=== PATIENT | female | born 1960 | race Caucasian/White ===

== ENCOUNTER 2018-04-28 11:39 | Inpatient (IN) ==
[2018-04-28 13:03] LABS: Basophils # (auto) 0.01 K/uL (0-0.2); Basophils % (auto) 0.1 %; Eosinophils # (auto) 0.04 K/uL (0-0.5); Eosinophils % (auto) 0.4 %; Hematocrit (blood only) 32.4 % (37-47); Immature Granulocytes # (auto) 0.03 K/uL (0.00-0.02); Immature Granulocytes % (auto) 0.3 %; Lymphocytes # (auto) 0.58 K/uL (1.2-3.4); Lymphocytes % (auto) 6.5 %; Mean Corpuscular Hgb Conc 30.9 g/dL (32-36); Mean Corpuscular Volume 80.2 fL (80-100); Mean Platelet Volume 8.3 fL (7.4-10.4); Monocytes # (auto) 0.91 K/uL (0.11-0.59); Monocytes % (auto) 10.2 %; Neutrophils # (auto) 7.34 K/uL (1.4-6.5); Neutrophils % (auto) 82.5 %; Platelet Count 524 K/uL (130-400); Red Blood Count 4.04 M/uL (4.2-5.4); White Blood Count 8.91 K/uL (4.8-10.8)
[2018-04-28 13:20] LABS: Alanine Aminotransferase 18 U/L (12-78); Albumin Level 2.3 gm/dl (3.4-5.0); Aspartate Aminotransferase 11 U/L (15-37); BUN Creatinine Ratio 9.8 (10-20); Blood Urea Nitrogen 15 mg/dl (7-18); Calcium 8.8 mg/dl (8.5-10.1); Carbon Dioxide 23 mmol/L (21-32); Chloride 102 mmol/L (98-107); Creatinine Clr Calc Pharmacy 51.4 ml/min; Est GFR (Non-African American) 37.1; Glucose 80 mg/dl (70-99); Potassium 3.9 mmol/L (3.5-5.1); Sodium 134 mmol/L (136-145)
[2018-04-28 13:22] LABS: INR 1.1 (0.9-1.1); Prothrombin Time 11.6 Seconds (9.0-12.0)
[2018-04-28 13:30] LABS: Albumin Globulin Ratio 0.4 (0.9-2); Alkaline Phosphatase 111 U/L (45-117); Bilirubin,Total 0.3 mg/dl (0.2-1); Globulin 5.7 gm/dl (2.5-4.0); Troponin I < 0.015 ng/ml (0-0.045)
--- NOTE | 2018-04-28 14:00 | XRay Report ---
XR knee LT 3V CLINICAL HISTORY: fall trauma. Pain. COMPARISON: None. DISCUSSION: The bones and joint spaces appear intact. There is no evidence of fracture, dislocation o r bony disease. There is no evidence for soft tissue swelling. IMPRESSION: Negative study. The above report was generated using voice recognition software. It may contain grammatical, syntax or spelling errors. Electronically signed by: Manohar Medina M.D. 04/28/2018 1:59 PM
--- NOTE | 2018-04-28 14:02 | XRay Report ---
RIGHT FOOT 3 VIEWS CLINICAL HISTORY: Fall with right foot pain. FINDINGS: 3 views of the right foot are obtained. No prior studies are available for comparison at th e time of dictation. The skeletal structures are osteopenic. No fracture is seen. There are large darcie alexa and plantar calcaneal enthesophytes. Advanced degenerative change as well as postoperative change is seen at the first metatarsophalangeal joint. The joint spaces of the foot are otherwise preserved . The overlying soft tissues are normal as imaged. IMPRESSION: 1. No acute bony abnormality is identified. 2. Osteopenia with heel spurs, postoperative, and degenerative change as above. Electronically signed by: Juaquin Michelle M.D. 04/28/2018 2:01 PM
[2018-04-28] MEDS ORDERED: ACETAMINOPHEN 1,000 MG/100 ML VIAL IV STA (14:51)
[2018-04-28] MEDS ORDERED: MoRPHine SULFATE 4 MG/ML 1 ML CARP\\VIAL IV STA (14:51)
[2018-04-28] MEDS ORDERED: ONDANSETRON INJ 2 MG/ML 2 ML VIAL IV STA (14:54)
--- NOTE | 2018-04-28 14:54 | CT Scan Report ---
CT head/brain wo con CT DOSE: HISTORY: fall, dizzy TECHNIQUE: Multiaxial CT images of the head were performed without the use of intravenous contrast. A dose lowering technique was utilized adhering to the principles of ALARA. Comparison: None. Findings: The paranasal sinuses and mastoid air cells are clear. The calvarium and skull base are int act. The ventricles and sulci are within normal limits. There is no mass, hematoma, midline shift, or acute infarct. Impression: No acute intracranial abnormality. The above report was generated using voice recognition software. It may contain grammatical, syntax or spelling errors. Electronically signed by: Manohar Medina M.D. 04/28/2018 2:50 PM
--- NOTE | 2018-04-28 14:55 | CT Scan Report ---
CT angio chest PE protocol CT DOSE: 3005.64 mGy.cm HISTORY: Trauma. Chest pain. PE dizzy, fall TECHNIQUE: Multiaxial CT images of the chest were performed following the intravenous administration of contrast to evaluate the pulmonary arteries. Maximal intensity projection images were also obtaine d. A dose lowering technique was utilized adhering to the principles of ALARA. COMPARISON STUDY: None. FINDINGS: There is a normal caliber thoracic aorta with no evidence for dissection. There is no evide nce for pulmonary embolus. No pleural effusions. No pneumothorax. The liver and spleen are unremarkab le. No mediastinal or hilar lymphadenopathy. The central airways are patent. The lungs are clear. IMPRESSION: No evidence for pulmonary embolus. The lungs are clear. The above report was generated using voice recognition software. It may contain grammatical, syntax or spelling errors. Electronically signed by: Manohar Medina M.D. 04/28/2018 2:54 PM
--- NOTE | 2018-04-28 15:00 | CT Scan Report ---
CT SCAN OF THE LUMBAR SPINE WITHOUT IV CONTRAST CLINICAL HISTORY: Fall. COMPARISON STUDY: No priors. TECHNIQUE: CT scan of the lumbar spine is performed from the lower thoracic spine to the sacrum. Imag es are reviewed in the axial, sagittal, and coronal planes. IV contrast was not administered specific ally for this examination. There is IV contrast present from the concurrently performed abdominal CT. A dose lowering technique was utilized adhering to the principles of ALARA. FINDINGS: The skeletal structures are osteopenic. There is a mild and acute appearing superior endpla te compression fracture of L1. No retropulsed fragments are identified. Vertebral body height is othe rwise maintained throughout the lumbar spine. The transverse and spinous processes appear intact. Ant erior osteophytes are seen throughout. There is no evidence of spondylolysis. No lytic or blastic les ion is seen. There is advanced disc space narrowing at L1-L2, L4-L5, and L5-S1 with posterior disc os teophyte complexes at these levels. There is no evidence of large disc herniation or high-grade centr al canal stenosis by CT. Mild facet arthropathy is noted in the lower lumbar region. The visualized s acrum and bony pelvis appear intact. The paraspinous soft tissues are normal as imaged. The abdominal aorta is normal in caliber noting moderate atherosclerotic calcification. No retroperitoneal lymphad enopathy is seen. IMPRESSION: 1. There is a mild and acute appearing superior endplate compression fracture of L1. Correlate for po int tenderness at this level. 2. The remainder of the lumbar spine appears intact. 3. Osteopenia and spondylotic change as above. Electronically signed by: Juaquin Michelle M.D. 04/28/2018 2:58 PM
--- NOTE | 2018-04-28 15:09 | CT Scan Report ---
ABDOMEN AND PELVIS CT WITH IV CONTRAST HISTORY: Acute abdominal pain status post fall. Reported history of rectal carcinoma fall, rectal ca ncer reported? TECHNIQUE: Multiaxial CT images of the abdomen and pelvis were performed following the use of intrave nous contrast. A dose lowering technique was utilized adhering to the principles of ALARA. COMPARISON STUDY: CTA chest, CT lumbar and thoracic spine studies of same day. FINDINGS: The imaged lung bases appear generally clear. Respiratory motion however limits evaluation of the aliza g bases. There is no pneumatosis or pneumoperitoneum. The imaged inferior cardiac chambers appear unr emarkable. Coronary arterial calcifications are noted. The gallbladder, liver, spleen, pancreas and adrenal glands appear unremarkable. The kidneys, and ure ters appear unremarkable. Mild to moderate circumferential wall thickening about the urinary bladder. Mildly heterogeneous appearance of the uterus. No adnexal mass lesions. Moderate calcification of th e abdominal aorta without aneurysm. Small sliding-type hilar hernia with mild wall thickening about t he distal esophagus. There is no small bowel obstruction. Terminal ileum is unremarkable. Appendix no t definitively seen. No secondary signs of acute appendicitis. Irregular wall thickening with increased enhancement is noted throughout the anus and anorectal junct ion with mild wall thickening also noted about the distal sigmoid. Irregular mass within this distrib ution is noted with ill-defined margins measuring up to approximately 5.4 x 4.1 x 6.5 cm. There is ce ntral ulceration of the mass with invasion into the right ischioanal fossa partially invading the rig ht gluteus kevin musculature an right pelvic floor musculature. There may also be invasion into the posterior vagina. Extensive deep tissue air along this distribution is also noted. Irregular soft ti ssue nodule measuring 2.1 x 1.4 cm is noted about the right hemipelvis on image 396 series 9 suggesti ve of metastasis. Trace free pelvic fluid with perirectal stranding. Remaining soft tissues appear unremarkable. Multilevel spondylitic spurring and facet arthrosis. No s uspicious lytic or blastic bony lesions identified. Demineralized appearance of the bones.. IMPRESSION: 1. Large irregular invasive potentially ulcerative mass of the anus, anorectal junction and rectum co mpatible with patient's reported known colorectal carcinoma. Mass invades the right ischial anal shankar a and adjacent musculature as above with possible invasion to the posterior vagina. Correlate with pr ior imaging. 2. Right pelvic jorge metastasis. 3. No bowel obstruction, pneumatosis or pneumoperitoneum. 4. Mild to moderate urinary bladder wall thickening. Correlate with urinalysis. 5. No acute posttraumatic abnormality of the abdomen or pelvis identified. Electronically signed by: Adiel Fournier M.D. 04/28/2018 3:07 PM
--- NOTE | 2018-04-28 15:37 | CT Scan Report ---
CT SCAN OF THE THORACIC SPINE WITHOUT IV CONTRAST CLINICAL HISTORY: Fall. Thoracic back pain. COMPARISON STUDY: Chest CT performed the same day 04/28/2018. TECHNIQUE: CT scan of the thoracic spine is performed from the lower cervical spine to the upper lumb ar spine. Images are reviewed in the axial, sagittal, and coronal planes. IV contrast was not adminis tered for this examination. There is IV contrast present from the concurrently performed chest CT. A dose lowering technique was utilized adhering to the principles of ALARA. FINDINGS: The skeletal structures are osteopenic. There is no evidence of acute fracture or malalignm ent involving the thoracic spine. A minimal age indeterminant superior endplate compression deformity is noted involving T4. Vertebral body height is otherwise maintained throughout the thoracic spine. Alignment is preserved. A minimal and acute appearing superior endplate compression deformity is agai n seen involving L1. The transverse and spinous processes appear intact. No lytic or blastic lesion i s seen. Small anterior osteophytes are seen throughout. There is no evidence of large disc herniation or high-grade central canal stenosis by CT. The disc spaces are grossly maintained. No acute posteri or rib fractures identified. There are healed left posterior rib fractures. The paraspinous soft tiss ues are normal as imaged. The visualized lung parenchyma appears clear. See report of dedicated chest CT performed concurrently for detailed intrathoracic findings. IMPRESSION: 1. There is no evidence of acute fracture or malalignment involving the thoracic spine. 2. A minimal and suspected acute superior endplate compression fracture is noted involving L1. 3. A minimal and age indeterminant superior endplate compression deformity of T4 is likely chronic. C orrelate for point tenderness. Dictated: 04/28/2018 3:17 PM Transcribed: 04/28/2018 3:37 PM Kelsey [id number] [facility] Electronically signed by: Juaquin Michelle M.D. 04/28/2018 3:38 PM
--- NOTE | 2018-04-28 15:52 | Emergency Department Note ---
Entered by Merly Vaughan acting as a scribe for History of Present Illness General Chief complaint: Referred by Doctor Stated complaint: PAIN EVERYWHERE,NAUSEA Time Seen by Provider: 04/28/18 12:19 Source: patient History of Present Illness Onset (ago): minute(s) (prior to arrival) Location: back, buttocks and lower extremity (left) Pain Consistency: + other (episode) Maximum Pain Intensity: 10 Quality: + other (referral by doctor) Associated symptoms: + denies other symptoms (abdominal pain, cold symptosm, tingling, right knee pain), + syncope and + other (left knee pain, low back pain, increased rectal pain, dizziness, periorbtial numbness); no fever/chills (fever) The patient is a 58 year old female who presents to the Emergency Room with complaints of an episode of a referral by a doctor occurring prior to arrival. The patient states that 3 years ago she was diagnosed with rectal cancer. She states that she received chemotherapy and radiation in the first year, but n othing since. She reports that they wanted to give her a colostomy, but she didnt want one and they were not straight forward with her about it. She states that she didnt know they would sew her butt shut. She reports that because of this she stopped going to that doctor and hasnt been seen for some time. The patient states that 4 days ago she had an episode of syncope. She reports that she fell in the doorway and hit her left knee. She reports that she then slide down the freezer by the door to her butt. She reports that since the fall she has left knee pain, low back pain, and increased rectal pain. The patient states that today she went to see Dr. Tao for these symptoms. She reports that he sent her here to be worked up. She states that while at his office she vomited. The patient complains of intermittent dizziness and periorbital numbness. The patient denies abdominal pain, fever, cold symptoms, tingling, and right knee pain. Home Medications Home Medications Medication Instructions Recorded Confirmed Type ibuprofen 200 mg PO QID PRN 04/28/18 04/28/18 History Allergies Allergy/AdvReac Type Severity Reaction Status Date / Time No Known Allergies Allergy Unverified 04/28/18 12:26 Past Med/Surg History Medical History Rectal cancer Family History Other Family history non-contributory Social History Preferred Language: Cymraes Communication Ability: Effective Beliefs That Will Affect Care: None marital status: Current Living Situation: Spouse current occupational status: disabled Other Information That Helps Us Care for You: No Feels Safe at Home: Yes Safety Concerns: Feels Safe At This Time Smoking Status: Current some day smoker Hx Alcohol Use: No Hx Substance Use: No Review of Systems See HPI for pertinent positives & negatives. and A total of 10 systems reviewed and were otherwise negative Physical Exam Vital Signs Vital Signs - 24 hr 04/28/18 11:41 04/28/18 11:58 04/28/18 12:00 Temperature 36.8 C Temperature Source Oral Sepsis Recent Fever Within 48 Hours No Sepsis Action Taken by Nursing No Action Required Pulse Rate 136 H Pulse Rate [Carotid] 105 H 103 H Pulse Rate from SpO2 Sensor Pulse Rhythm [Carotid] Regular Pulse Strength [Carotid] Normal Respiratory Rate 18 14 10 L Respiratory Effort / Characteristics Non-Labored Spontaneous Non-Labored Spontaneous Respiratory Depth Normal Normal Respiratory Pattern Regular Regular Blood Pressure 123/87 Blood Pressure [Left Arm] 135/73 134/73 Blood Pressure Mean 99 Blood Pressure Mean [Left Arm] 93 93 Blood Pressure Position Sitting Pulse Oximetry 98 98 97 Oxygen Delivery Method Room Air Room Air 04/28/18 12:31 04/28/18 13:00 04/28/18 13:30 Temperature Temperature Source Sepsis Recent Fever Within 48 Hours Sepsis Action Taken by Nursing Pulse Rate 105 H 97 H 98 H Pulse Rate [Carotid] Pulse Rate from SpO2 Sensor 104 H 98 H 98 H Pulse Rhythm [Carotid] Pulse Strength [Carotid] Respiratory Rate 16 22 20 Respiratory Effort / Characteristics Respiratory Depth Respiratory Pattern Blood Pressure 166/73 H 127/72 145/80 H Blood Pressure [Left Arm] Blood Pressure Mean 104 90 101 Blood Pressure Mean [Left Arm] Blood Pressure Position Pulse Oximetry 99 94 96 Oxygen Delivery Method Room Air Room Air Room Air 04/28/18 14:00 04/28/18 14:01 04/28/18 14:47 Temperature Temperature Source Sepsis Recent Fever Within 48 Hours Sepsis Action Taken by Nursing Pulse Rate 93 H 92 H 87 Pulse Rate [Carotid] Pulse Rate from SpO2 Sensor 93 H 93 H 87 Pulse Rhythm [Carotid] Pulse Strength [Carotid] Respiratory Rate 18 18 16 Respiratory Effort / Characteristics Respiratory Depth Respiratory Pattern Blood Pressure 150/84 H Blood Pressure [Left Arm] Blood Pressure Mean 106 Blood Pressure Mean [Left Arm] Blood Pressure Position Pulse Oximetry 97 97 100 Oxygen Delivery Method Room Air 04/28/18 15:00 04/28/18 16:07 04/28/18 16:30 Temperature Temperature Source Sepsis Recent Fever Within 48 Hours Sepsis Action Taken by Nursing Pulse Rate 85 77 Pulse Rate [Carotid] Pulse Rate from SpO2 Sensor 86 77 Pulse Rhythm [Carotid] Pulse Strength [Carotid] Respiratory Rate 22 18 Respiratory Effort / Characteristics Respiratory Depth Respiratory Pattern Blood Pressure 159/81 H 163/87 H Blood Pressure [Left Arm] Blood Pressure Mean 107 112 Blood Pressure Mean [Left Arm] Blood Pressure Position Pulse Oximetry 100 98 Oxygen Delivery Method Room Air Room Air 04/28/18 17:00 04/28/18 17:30 04/28/18 18:00 Temperature Temperature Source Sepsis Recent Fever Within 48 Hours Sepsis Action Taken by Nursing Pulse Rate 85 78 81 Pulse Rate [Carotid] Pulse Rate from SpO2 Sensor 86 76 80 Pulse Rhythm [Carotid] Pulse Strength [Carotid] Respiratory Rate 18 19 18 Respiratory Effort / Characteristics Respiratory Depth Respiratory Pattern Blood Pressure 161/90 H 148/85 H 149/84 H Blood Pressure [Left Arm] Blood Pressure Mean 113 106 105 Blood Pressure Mean [Left Arm] Blood Pressure Position Pulse Oximetry 96 96 95 Oxygen Delivery Method Room Air Room Air Room Air 04/28/18 18:30 Temperature Temperature Source Sepsis Recent Fever Within 48 Hours Sepsis Action Taken by Nursing Pulse Rate 80 Pulse Rate [Carotid] Pulse Rate from SpO2 Sensor 80 Pulse Rhythm [Carotid] Pulse Strength [Carotid] Respiratory Rate 16 Respiratory Effort / Characteristics Respiratory Depth Respiratory Pattern Blood Pressure 147/80 H Blood Pressure [Left Arm] Blood Pressure Mean 102 Blood Pressure Mean [Left Arm] Blood Pressure Position Pulse Oximetry 97 Oxygen Delivery Method Room Air GENERAL: Awake, alert, intermittently tearful, in no distress HENT: Normocephalic, atraumatic. EYES: Normal conjunctiva. Sclera non-icteric. PERRL. NECK: Supple. No nuchal rigidity. RESPIRATORY: Clear to auscultation. No wheezes. Normal respiratory effort. CARDIAC: Normal rate. Normal rhythm. Extremities warm and well perfused. GI: Soft, non-distended. No tenderness to palpation. No rebound or guarding. No masses. RECTAL: Deferred. MUSCULOSKELETAL: Atraumatic. Chest examination reveals no tenderness. There is no CVA tenderness to palpation. Diffuse tenderness to the lower back. LOWER EXTREMITIES: Calves are equal size bilaterally and non-tender. No edema. Contusion on the left knee. Some tenderness to the left knee and some tenderness over the right foot. NEURO: Normal sensorium. No sensory or motor deficits noted. No facial droop. SKIN: Warm and dry. No jaundice noted. Course 1221: Past medical records reviewed. The patient was evaluated in room C12B, and a complete history and physical examination were performed. 1238: I spoke to Dr. Tao- Oncology. He recommends a broad workup and admission. 1459: I reevaluated the patient and she is having pain after shifting for CT. She is getting pain medicine at this time. I updated her on her lab results at this time. 1543: I reevaluated the patient and updated her on her test results. I discussed the treatment plan with her. She verbally agrees and understands. 1546: I reviewed the patient's case with Dr. Afshan ROMERO Hospitalist. She will evaluate the patient for further management. Consultations Consultation #1: I spoke to Dr. Tao- Oncology. He recommends a broad workup and admission. Time: 12:38 Consultation #2: I reviewed the patient's case with Dr. Afshan ROMERO Hospitalist. She will evaluate the patient for further management. Time: 15:46 Administered Medications Discontinued Medications Acetaminophen (Ofirmev) 1,000 mg in 100 mls @ 400 mls/hr IV NOW STA Stop: 04/28/18 15:05 Last Infusion: 04/28/18 15:12 Dose: 0 mls/hr Documented by: [id number] Admin: 04/28/18 14:57 Dose: 400 mls/hr Documented by: [id number] Morphine Sulfate (Morphine Sulfate) 4 mg IV NOW STA Stop: 04/28/18 14:52 Last Admin: 04/28/18 14:57 Dose: 4 mg Documented by: [id number] Ondansetron HCl (Zofran) 4 mg IV NOW STA Stop: 04/28/18 14:55 Last Admin: 04/28/18 14:57 Dose: 4 mg Documented by: [id number] Medical Decision Making Differential Diagnosis Differential diagnosis: Etiologies such as vasovagal event, infection, anemia, hypoglycemia, hypovolemia, electrolyte abnormalities, dysrhythmias, cardiac ischemia, cardiac tamponade, valvular heart disease, structural heart disease, seizure, vascular stenosis/dissection, pulmonary embolism, intracerebral event, toxicological process, neurologic event, fracture, cervical/vertebral injury, dislocation, intra-abdominal process, pneumothorax, intrathoracic trauma, intracranial injury, soft tissue injury, neurologic process, as well as other traumatic pathologies were entertained. Medical Records Attestation: I reviewed the patient's medical records. Home Medications Current Medication List: was personally reviewed by me Laboratory Data Attestation: I reviewed the patient's lab results. Result diagrams: 04/28/18 12:50 04/28/18 12:50 Lab Results 04/28/18 04/28/18 04/28/18 Range/Units 12:50 12:50 12:50 WBC 8.91 (4.8-10.8) K/uL RBC 4.04 L (4.2-5.4) M/uL Hgb 10.0 L (12.0-16.0) g/dL Hct 32.4 L (37-47) % MCV 80.2 (80-100) fL MCH 24.8 L (25-34) pg MCHC 30.9 L (32-36) g/dL RDW Std Deviation 47.0 H (36.4-46.3) fL RDW Coeff of Carly 16.0 H (11.5-14.5) % Plt Count 524 H (130-400) K/uL MPV 8.3 (7.4-10.4) fL Immature Gran % (Auto) 0.3 % Neut % (Auto) 82.5 % Lymph % (Auto) 6.5 % Rawlins % (Auto) 10.2 % Eos % (Auto) 0.4 % Baso % (Auto) 0.1 % Immature Gran # (Auto) 0.03 H (0.00-0.02) K/uL Neut # (Auto) 7.34 H (1.4-6.5) K/uL Lymph # (Auto) 0.58 L (1.2-3.4) K/uL Rawlins # (Auto) 0.91 H (0.11-0.59) K/uL Eos # (Auto) 0.04 (0-0.5) K/uL Baso # (Auto) 0.01 (0-0.2) K/uL PT 11.6 (9.0-12.0) Seconds INR 1.1 (0.9-1.1) Sodium 134 L (136-145) mmol/L Potassium 3.9 (3.5-5.1) mmol/L Chloride 102 (98-107) mmol/L Carbon Dioxide 23 (21-32) mmol/L Anion Gap 9.0 (3-11) BUN 15 (7-18) mg/dl Creatinine 1.53 H (0.6-1.2) mg/dl Est Cr Clr Drug Dosing 51.4 ml/min Est GFR ( Amer) 43.0 Est GFR (Non-Af Amer) 37.1 BUN/Creatinine Ratio 9.8 L (10-20) Glucose 80 (70-99) mg/dl Calcium 8.8 (8.5-10.1) mg/dl Total Bilirubin 0.3 (0.2-1) mg/dl AST 11 L (15-37) U/L ALT 18 (12-78) U/L Alkaline Phosphatase 111 (45-117) U/L Troponin I < 0.015 (0-0.045) ng/ml Total Protein 8.0 (6.4-8.2) gm/dl Albumin 2.3 L (3.4-5.0) gm/dl Globulin 5.7 H (2.5-4.0) gm/dl Albumin/Globulin Ratio 0.4 L (0.9-2) TSH 3.750 (0.300-4.500) uIu/ml Imaging Data Radiologist's Impression: Radiology results as stated below per my review and the radiologist's interpretation: XR knee LT 3V CLINICAL HISTORY: fall trauma. Pain. COMPARISON: None. DISCUSSION: The bones and joint spaces appear intact. There is no evidence of fracture, dislocation or bony disease. There is no evidence for soft tissue swelling. IMPRESSION: Negative study. The above report was generated using voice recognition software. It may contain grammatical, syntax or spelling errors. Electronically signed by: Manohar Medina M.D. 04/28/2018 1:59 PM RIGHT FOOT 3 VIEWS CLINICAL HISTORY: Fall with right foot pain. FINDINGS: 3 views of the right foot are obtained. No prior studies are available for comparison at the time of dictation. The skeletal structures are osteopenic. No fracture is seen. There are large dorsal and plantar calcaneal enthesophytes. Advanced degenerative change as well as postoperative change is seen at the first metatarsophalangeal joint. The joint spaces of the foot are otherwise preserved. The overlying soft tissues are normal as imaged. IMPRESSION: 1. No acute bony abnormality is identified. 2. Osteopenia with heel spurs, postoperative, and degenerative change as above. Electronically signed by: Juaquin Michelle M.D. 04/28/2018 2:[address] head/brain wo con CT DOSE: HISTORY: fall, dizzy TECHNIQUE: Multiaxial CT images of the head were performed without the use of intravenous contrast. A dose lowering technique was utilized adhering to the principles of ALARA. Comparison: None. Findings: The paranasal sinuses and mastoid air cells are clear. The calvarium and skull base are intact. The ventricles and sulci are within normal limits. There is no mass, hematoma, midline shift, or acute infarct. Impression: No acute intracranial abnormality. The above report was generated using voice recognition software. It may contain grammatical, syntax or spelling errors. Electronically signed by: Manohar Medina M.D. 04/28/2018 2:[address] angio chest PE protocol CT DOSE: 3005.64 mGy.cm HISTORY: Trauma. Chest pain. PE dizzy, fall TECHNIQUE: Multiaxial CT images of the chest were performed following the intrav enous administration of contrast to evaluate the pulmonary arteries. Maximal intensity projection images were also obtained. A dose lowering technique was utilized adhering to the principles of ALARA. COMPARISON STUDY: None. FINDINGS: There is a normal caliber thoracic aorta with no evidence for dissection. There is no evidence for pulmonary embolus. No pleural effusions. No pneumothorax. The liver and spleen are unremarkable. No mediastinal or hilar lymphadenopathy. The central airways are patent. The lungs are clear. IMPRESSION: No evidence for pulmonary embolus. The lungs are clear. The above report was generated using voice recognition software. It may contain grammatical, syntax or spelling errors. Electronically signed by: Manohar Medina M.D. 04/28/2018 2:54 PM A[address]OMEN AND PELVIS CT WITH IV CONTRAST HISTORY: Acute abdominal pain status post fall. Reported history of rectal carcinoma fall, rectal cancer reported? TECHNIQUE: Multiaxial CT images of the abdomen and pelvis were performed following the use of intravenous contrast. A dose lowering technique was utilized adhering to the principles of ALARA. COMPARISON STUDY: CTA chest, CT lumbar and thoracic spine studies of same day. FINDINGS: The imaged lung bases appear generally clear. Respiratory motion however limits evaluation of the lung bases. There is no pneumatosis or pneumoperitoneum. The imaged inferior cardiac chambers appear unremarkable. Coronary arterial calcifications are noted. The gallbladder, liver, spleen, pancreas and adrenal glands appear unremarkable. The kidneys, and ureters appear unremarkable. Mild to moderate circumferential wall thickening about the urinary bladder. Mildly heterogeneous appearance of the uterus. No adnexal mass lesions. Moderate calcification of the abdominal aorta without aneurysm. Small sliding-type hilar hernia with mild wall thickening about the distal esophagus. There is no small bowel obstruction. Terminal ileum is unremarkable. Appendix not definitively seen. No secondary signs of acute appendicitis. Irregular wall thickening with increased enhancement is noted throughout the anus and anorectal junction with mild wall thickening also noted about the distal sigmoid. Irregular mass within this distribution is noted with ill- defined margins measuring up to approximately 5.4 x 4.1 x 6.5 cm. There is central ulceration of the mass with invasion into the right ischioanal fossa partially invading the right gluteus kevin musculature an right pelvic floor musculature. There may also be invasion into the posterior vagina. Extensive deep tissue air along this distribution is also noted. Irregular soft tissue nodule measuring 2.1 x 1.4 cm is noted about the right hemipelvis on image 396 series 9 suggestive of metastasis. Trace free pelvic fluid with perirectal stranding. Remaining soft tissues appear unremarkable. Multilevel spondylitic spurring and facet arthrosis. No suspicious lytic or blastic bony lesions identified. Demineralized appearance of the bones.. IMPRESSION: 1. Large irregular invasive potentially ulcerative mass of the anus, anorectal junction and rectum compatible with patient's reported known colorectal carcinoma. Mass invades the right ischial anal fossa and adjacent musculature as above with possible invasion to the posterior vagina. Correlate with prior imaging. 2. Right pelvic jorge metastasis. 3. No bowel obstruction, pneumatosis or pneumoperitoneum. 4. Mild to moderate urinary bladder wall thickening. Correlate with urinalysis. 5. No acute posttraumatic abnormality of the abdomen or pelvis identified. Electronically signed by: Adiel Fournier M.D. 04/28/2018 3:[address] SCAN OF THE THORACIC SPINE WITHOUT IV CONTRAST CLINICAL HISTORY: Fall. Thoracic back pain. COMPARISON STUDY: Chest CT performed the same day 04/28/2018. TECHNIQUE: CT scan of the thoracic spine is performed from the lower cervical spine to the upper lumbar spine. Images are reviewed in the axial, sagittal, and coronal planes. IV contrast was not administered for this examination. There is IV contrast present from the concurrently performed chest CT. A dose lowering technique was utilized adhering to the principles of ALARA. FINDINGS: The skeletal structures are osteopenic. There is no evidence of acute fracture or malalignment involving the thoracic spine. A minimal age indeterminant superior endplate compression deformity is noted involving T4. Vertebral body height is otherwise maintained throughout the thoracic spine. Alignment is preserved. A minimal and acute appearing superior endplate compression deformity is again seen involving L1. The transverse and spinous processes appear intact. No lytic or blastic lesion is seen. Small anterior osteophytes are seen throughout. There is no evidence of large disc herniation or high-grade central canal stenosis by CT. The disc spaces are grossly maintained. No acute posterior rib fractures identified. There are healed left posterior rib fractures. The paraspinous soft tissues are normal as imaged. The visualized lung parenchyma appears clear. See report of dedicated chest CT performed concurrently for detailed intrathoracic findings. IMPRESSION: 1. There is no evidence of acute fracture or malalignment involving the thoracic spine. 2. A minimal and suspected acute superior endplate compression fracture is noted involving L1. 3. A minimal and age indeterminant superior endplate compression deformity of T4 is likely chronic. Correlate for point tenderness. Dictated: 04/28/2018 3:17 PM Transcribed: 04/28/2018 3:37 PM Kelsey [id number] [facility] Electronically signed by: Juaquin Michelle M.D. 04/28/2018 3:[address] SCAN OF THE LUMBAR SPINE WITHOUT IV CONTRAST CLINICAL HISTORY: Fall. COMPARISON STUDY: No priors. TECHNIQUE: CT scan of the lumbar spine is performed from the lower thoracic spine to the sacrum. Images are reviewed in the axial, sagittal, and coronal planes. IV contrast was not administered specifically for this examination. There is IV contrast present from the concurrently performed abdominal CT. A dose lowering technique was utilized adhering to the principles of ALARA. FINDINGS: The skeletal structures are osteopenic. There is a mild and acute appearing superior endplate compression fracture of L1. No retropulsed fragments are identified. Vertebral body height is otherwise maintained throughout the lumbar spine. The transverse and spinous processes appear intact. Anterior osteophytes are seen throughout. There is no evidence of spondylolysis. No lytic or blastic lesion is seen. There is advanced disc space narrowing at L1-L2, L4- L5, and L5-S1 with posterior disc osteophyte complexes at these levels. There is no evidence of large disc herniation or high-grade central canal stenosis by CT. Mild facet arthropathy is noted in the lower lumbar region. The visualized sacrum and bony pelvis appear intact. The paraspinous soft tissues are normal as imaged. The abdominal aorta is normal in caliber noting moderate atherosclerotic calcification. No retroperitoneal lymphadenopathy is seen. IMPRESSION: 1. There is a mild and acute appearing superior endplate compression fracture of L1. Correlate for point tenderness at this level. 2. The remainder of the lumbar spine appears intact. 3. Osteopenia and spondylotic change as above. Electronically signed by: Juaquin Michelle M.D. 04/28/2018 2:58 PM ECG Data Attestation: I personally reviewed and interpreted this ECG as follows: Indication: back/shoulder pain Rate (beats per minute): 98 Rhythm: normal sinus Findings: + other (normal intervals, normal axis) and + nonspecific-ST abn; no PVC and no ST elevation Blood Pressure Blood Pressure Findings: Elevated blood pressure Blood Pressure Disposition: further management by hospitalist GABRIEL Narrative 58-year-old female history of reported rectal cancer in 2016. With chemo and radiation possibly with some minor surgical revision lost to follow-up presented to oncology today for establishing care here. Prior therapy at [facility]. States intermittently she is been getting somewhat dizzy at times and a little bit of perioral numbness. Fell on . Complaint of left knee and right foot pain along with back pain. Oncology recommended she come here she was in severe pain. Discussed with oncology. Broad CT imaging was completed including the head and thorax. Imaging left knee and foot completed. No acute focal deficits for CVA. EKG and basic labs completed. No significant leukocytosis and anemia of 10. Kidney function creatinine of 1.53 no previous baseline available to me here. No evidence of cardiac injury or thyroid dysfunction. No evidence of acute hepatitis. Offered pain medicine but she initially declined here. X-rays of the knees and foot without acute fracture but degenerative/osteopenic changes. On returning from CT scan patient did request pain medicine given morphine and Tylenol. CT imaging shows no evidence of acute pathology of the chest or head. There is a mild acute appearing L1 compression fracture notable. CT scan of the abdomen pelvis does show rectal/anal mass with invasion into the right ischial anal fossa musculature. There are right pelvic nodule metastasis noted as well. No pneumoperitoneum or bowel obstruction is noted. Urinalysis still pending at this time. Given her pain complaints and difficulty with follow-up in the past believe admission for further oncological workup and symptom treatment is indicated. Discussed with the hospitalist for admission and the patient. Impression & Plan Compression fracture of L1 vertebra, Mass of anus Discharge Plan Visit Data Chief Complaint: Referred by Doctor Stated Complaint: PAIN EVERYWHERE,NAUSEA ED Provider: Jamin Killian Discharge Problem: Compression fracture of L1 vertebra, Mass of anus Patient Disposition: Being Evaluated by Hospitalist Discharge Instructions Interventions: ED Discharge Assessment Last Done: 04/28/18 18:41 Forms Stand Alone Forms: My [facility] Prescriptions Prescriptions: No Action ibuprofen 200 mg Capsule 200 mg PO QID PRN (Reason: Pain) RF: 0 Referrals Referrals: PCP,NO [Primary Care Provider] - Discharge Problem: Compression fracture of L1 vertebra Qualifiers: Encounter type: initial encounter Fracture type: closed Qualified Code(s): S32.010A - Wedge compression fracture of first lumbar vertebra, initial encounter for closed fracture The scribe's documentation has been prepared under my direction and personally reviewed by me in its entirety. I confirm that the note above accurately reflects all work, treatment, procedures, and medical decision making performed by me.
--- NOTE | 2018-04-28 17:24 | History & Physical Report ---
Date of Service April 28, 2018 Assessment & Plan (1) Compression fracture of L1 vertebra: This pt is a 58 yo female with a h/o rectal CA not in remission, whitecoat HTN, , and chronic right ankle pain who presents from the Oncology office with severe lower back pain after a fall on 04/24/18. She reports her legs gave out and often her right ankle will give way due to a chronic injury as she was walking to the bathroom. Her witnessed her fall. She landed on her bottom and had no LOC. She had a lot of pain after that in her left knee and lower back at the waistline that was nonradiating. She denied any numbness or tingling. She denies weakness in her legs and is able to walk, but the standing and sitting positions make the pain much worse. Lying flat makes the pain better. Taking ibuprofen and her 's tramadol have taken the edge off. She had an appt for the first time with Oncology today and had to be brought in by wheelchair to the appt and had such severe pain that she was sent to the ER. She was given morphine 4mg IV x 1 and Zofran, as well as IV APAP and had relief. As for her anorectal CA, she reports initially being treated with XRT and chemo in 2016, and then was told she had to have a colostomy and was fearful of doing this as things weren't explained to her very well. She then went for a second opinion and was told she couldn't have surgery due to not having insurance. She then states she tried to get an appt at [facility] who would not see her. Also, [facility] in [facility] would not see her as she had previously had XRT. She then was lost to follow up until today's appt with Oncology. She reports daily anal leakage mostly of clear fluid and sometimes of stool, no bleeding. -Admit to medical/surgical floor for pain control for L1 compression fracture. Fracture is secondary to fall but likely osteoporotic fracture given osteopenia noted on imaging with fall from standing height. -Continue IV morphine as needed and tramadol p.o. as needed, Zofran as needed for nausea she gets at times with opioids -Would avoid NSAIDs given renal failure and microcytic anemia likely chronic occult GI blood loss due to rectal cancer -Consult orthopedic surgery to see if vertebroplasty would be an option -PT/OT consult placed (2) Rectal cancer: With large infiltrating anorectal mass-without adequate surgical treatment at the time of diagnosis in 2016 due to what seems like social factors. Was to see hematology/oncology Dr. Bee here in the office today but appointment canceled due to severe pain -Consult oncology at this time -Anemia likely secondary to rectal cancer -Continue pain control (3) HTN (hypertension), benign: Patient states that she has whitecoat hypertension and her daughter is a nurse who confirms this at the bedside. Blood pressures here are moderately elevated. Continue to follow -We will not start standing medications at this time (4) Knee pain, acute: Left knee pain secondary to fall 3 days prior to admission. X-ray negative for fracture but does have small effusion on exam -Pain control as above -PT/OT consults (5) Anemia: Anemia is microcytic and hemoglobin is at 10.0. Likely secondary to occult GI bleeding from known rectal cancer -Check iron studies in the morning -Follow CBC (6) DAVID (acute kidney injury): Unclear if this is acute or chronic. Creatinine here is 1.53 and no old labs to compare to. She has not follow-up with primary care physician in 10 years -Follow renal function in the morning -Avoid nephrotoxins -Renally dose all medications (7) Chronic pain of right ankle: Secondary to a fracture in childhood-sounds like CRPS. Has severe pain with minimal palpation of the ankle for decades. Pain control as above -Consider gabapentin (8) DVT prophylaxis: High risk for DVT given ongoing malignancy and relative immobility due to lumbar spine compression fracture Start heparin SQ and watch for rectal bleeding Disposition-admit to medical/surgical floor Expect at least a 2 midnight stay for pain control and further evaluation of her progressive rectal cancer History of Present Illness Chief Complaint: Back pain Primary Care Provider: NO PCP This pt is a 58 yo female with a h/o rectal CA not in remission, whitecoat HTN, , and chronic right ankle pain who presents from the Oncology office with severe lower back pain after a fall on 04/24/18. She reports her legs gave out and often her right ankle will give way due to a chronic injury as she was walking to the bathroom. Her witnessed her fall. She landed on her bottom and had no LOC. She had a lot of pain after that in her left knee and lower back at the waistline that was nonradiating. She denied any numbness or tingling. She denies weakness in her legs and is able to walk, but the standing and sitting positions make the pain much worse. Lying flat makes the pain better. Taking ibuprofen and her 's tramadol have taken the edge off. She had an appt for the first time with Oncology today and had to be brought in by wheelchair to the appt and had such severe pain that she was sent to the ER. She was given morphine 4mg IV x 1 and Zofran, as well as IV APAP and had relief. As for her anorectal CA, she reports initially being treated with XRT and chemo in 2016, and then was told she had to have a colostomy and was fearful of doing this as things weren't explained to her very well. She then went for a second opinion and was told she couldn't have surgery due to not having insurance. She then states she tried to get an appt at [facility] who would not see her. Also, [facility] in [facility] would not see her as she had previously had XRT. She then was lost to follow up until today's appt with Oncology. She reports daily anal leakage mostly of clear fluid and sometimes of stool, no bleeding. Allergies Allergy/AdvReac Type Severity Reaction Status Date / Time No Known Allergies Allergy Unverified 04/28/18 12:26 Home Medications Home Medications Medication Instructions Recorded Confirmed Type ibuprofen 200 mg PO QID PRN 04/28/18 04/28/18 History Past Med/Surg History Medical History Chronic pain of right ankle Degenerative disc disease HTN (hypertension), benign Rectal cancer Surgical History History of tonsillectomy History of tympanostomy tube placement History of arthroscopy of right knee History of appendectomy History of bunionectomy of right great toe History of section History of ankle surgery Family History Father Heart attack, Onset Age: 45 Mother Diabetes mellitus Glaucoma Other Family history non-contributory Social History Preferred Language: Turkmen Communication Ability: Effective Beliefs That Will Affect Care: None marital status: Current Living Situation: Spouse current occupational status: disabled Other Information That Helps Us Care for You: No Feels Safe at Home: Yes Safety Concerns: Feels Safe At This Time Smoking Status: Current some day smoker Hx Alcohol Use: Yes Hx Substance Use: No Review of Systems All systems reviewed & are unremarkable except as noted in HPI & below Physical Exam Vital Signs (Past 24 Hours): Last Vital Signs Temp 36.8 C 04/28/18 11:41 Pulse 77 04/28/18 16:30 Resp 18 04/28/18 16:30 BP 163/87 H 04/28/18 16:30 Pulse Ox 98 04/28/18 16:30 Constitutional: WD/WN, vitals as above Eyes: PERRL, conjunctivae normal, anicteric sclerae ENMT: external ear and nose normal, oropharynx normal Neck: trachea midline, no thyromegaly Respiratory: normal respiratory effort, lungs clear to auscultation Cardiovascular: RRR, no murmur, no edema Gastrointestinal (Abdomen): normal bowel sounds, soft, nontender, no hepatosplenomegaly Musculoskeletal: no cyanosis or clubbing, extremities motor strength 5/5 Spine: lumbar spine normal to inspection and + lumbar spinal tenderness (Over the L1-L2 region in the midline) Knee: + knee abnormal to inspection (Left knee with mild effusion, range of motion 0-100 degrees, positive tenderness to palpation over medial knee) Skin: no rashes, warm and dry Neurologic: moves all extremities and awake; no focal motor deficits Psychiatric: A+Ox3, euthymic affect Results & Data Laboratory Results 04/28/18 04/28/18 04/28/18 Range/Units 19:00 12:50 12:50 WBC (4.8-10.8) K/uL RBC (4.2-5.4) M/uL Hgb (12.0-16.0) g/dL Hct (37-47) % MCV (80-100) fL MCH (25-34) pg MCHC (32-36) g/dL RDW Std Deviation (36.4-46.3) fL RDW Coeff of Carly (11.5-14.5) % Plt Count (130-400) K/uL MPV (7.4-10.4) fL Immature Gran % (Auto) % Neut % (Auto) % Lymph % (Auto) % Ballard % (Auto) % Eos % (Auto) % Baso % (Auto) % Immature Gran # (Auto) (0.00-0.02) K/uL Neut # (Auto) (1.4-6.5) K/uL Lymph # (Auto) (1.2-3.4) K/uL Ballard # (Auto) (0.11-0.59) K/uL Eos # (Auto) (0-0.5) K/uL Baso # (Auto) (0-0.2) K/uL PT 11.6 (9.0-12.0) Seconds INR 1.1 (0.9-1.1) Sodium 134 L (136-145) mmol/L Potassium 3.9 (3.5-5.1) mmol/L Chloride 102 (98-107) mmol/L Carbon Dioxide 23 (21-32) mmol/L Anion Gap 9.0 (3-11) BUN 15 (7-18) mg/dl Creatinine 1.53 H (0.6-1.2) mg/dl Est Cr Clr Drug Dosing 51.4 ml/min Est GFR ( Amer) 43.0 Est GFR (Non-Af Amer) 37.1 BUN/Creatinine Ratio 9.8 L (10-20) Glucose 80 (70-99) mg/dl Calcium 8.8 (8.5-10.1) mg/dl Total Bilirubin 0.3 (0.2-1) mg/dl AST 11 L (15-37) U/L ALT 18 (12-78) U/L Alkaline Phosphatase 111 (45-117) U/L Troponin I < 0.015 (0-0.045) ng/ml Total Protein 8.0 (6.4-8.2) gm/dl Albumin 2.3 L (3.4-5.0) gm/dl Globulin 5.7 H (2.5-4.0) gm/dl Albumin/Globulin Ratio 0.4 L (0.9-2) TSH 3.750 (0.300-4.500) uIu/ml Urine Color Yellow Urine Appearance Turbid H (Clear) Urine pH 7.5 (4.5-7.5) Ur Specific [place] > 1.045 H (1.000-1.030) Urine Protein Negative (Negative) Urine Glucose (UA) Negative (Negative) Urine Ketones Trace H (Negative) Urine Blood Negative (Negative) Urine Nitrite Negative (Negative) Urine Bilirubin Negative (Negative) Urine Urobilinogen Negative (Negative) Ur Leukocyte Esterase 2+ H (Negative) Urine WBC (Auto) >30 H (0-5) /hpf Urine RBC (Auto) 0-4 (0-4) /hpf U Hyaline Cast (Auto) 1-5 (0-5) /lpf U Epithel Cells (Auto) >30 H (0-5) /lpf Urine Bacteria (Auto) 1+ H (Negative) Urine Yeast Not Reportable 04/28/18 Range/Units 12:50 WBC 8.91 (4.8-10.8) K/uL RBC 4.04 L (4.2-5.4) M/uL Hgb 10.0 L (12.0-16.0) g/dL Hct 32.4 L (37-47) % MCV 80.2 (80-100) fL MCH 24.8 L (25-34) pg MCHC 30.9 L (32-36) g/dL RDW Std Deviation 47.0 H (36.4-46.3) fL RDW Coeff of Carly 16.0 H (11.5-14.5) % Plt Count 524 H (130-400) K/uL MPV 8.3 (7.4-10.4) fL Immature Gran % (Auto) 0.3 % Neut % (Auto) 82.5 % Lymph % (Auto) 6.5 % Ballard % (Auto) 10.2 % Eos % (Auto) 0.4 % Baso % (Auto) 0.1 % Immature Gran # (Auto) 0.03 H (0.00-0.02) K/uL Neut # (Auto) 7.34 H (1.4-6.5) K/uL Lymph # (Auto) 0.58 L (1.2-3.4) K/uL Ballard # (Auto) 0.91 H (0.11-0.59) K/uL Eos # (Auto) 0.04 (0-0.5) K/uL Baso # (Auto) 0.01 (0-0.2) K/uL PT (9.0-12.0) Seconds INR (0.9-1.1) Sodium (136-145) mmol/L Potassium (3.5-5.1) mmol/L Chloride (98-107) mmol/L Carbon Dioxide (21-32) mmol/L Anion Gap (3-11) BUN (7-18) mg/dl Creatinine (0.6-1.2) mg/dl Est Cr Clr Drug Dosing ml/min Est GFR ( Amer) Est GFR (Non-Af Amer) BUN/Creatinine Ratio (10-20) Glucose (70-99) mg/dl Calcium (8.5-10.1) mg/dl Total Bilirubin (0.2-1) mg/dl AST (15-37) U/L ALT (12-78) U/L Alkaline Phosphatase (45-117) U/L Troponin I (0-0.045) ng/ml Total Protein (6.4-8.2) gm/dl Albumin (3.4-5.0) gm/dl Globulin (2.5-4.0) gm/dl Albumin/Globulin Ratio (0.9-2) TSH (0.300-4.500) uIu/ml Urine Color Urine Appearance (Clear) Urine pH (4.5-7.5) Ur Specific [place] (1.000-1.030) Urine Protein (Negative) Urine Glucose (UA) (Negative) Urine Ketones (Negative) Urine Blood (Negative) Urine Nitrite (Negative) Urine Bilirubin (Negative) Urine Urobilinogen (Negative) Ur Leukocyte Esterase (Negative) Urine WBC (Auto) (0-5) /hpf Urine RBC (Auto) (0-4) /hpf U Hyaline Cast (Auto) (0-5) /lpf U Epithel Cells (Auto) (0-5) /lpf Urine Bacteria (Auto) (Negative) Urine Yeast Diagnostic Findings ABDOMEN AND PELVIS CT WITH IV CONTRAST HISTORY: Acute abdominal pain status post fall. Reported history of rectal carcinoma fall, rectal cancer reported? TECHNIQUE: Multiaxial CT images of the abdomen and pelvis were performed following the use of intravenous contrast. A dose lowering technique was utilized adhering to the principles of ALARA. COMPARISON STUDY: CTA chest, CT lumbar and thoracic spine studies of same day. FINDINGS: The imaged lung bases appear generally clear. Respiratory motion however limits evaluation of the lung bases. There is no pneumatosis or pneumoperitoneum. The imaged inferior cardiac chambers appear unremarkable. Coronary arterial calcifications are noted. The gallbladder, liver, spleen, pancreas and adrenal glands appear unremarkable. The kidneys, and ureters appear unremarkable. Mild to moderate circumferential wall thickening about the urinary bladder. Mildly heterogeneous appearance of the uterus. No adnexal mass lesions. Moderate calcification of the abdominal aorta without aneurysm. Small sliding-type hilar hernia with mild wall thickening about the distal esophagus. There is no small bowel obstruction. Terminal ileum is unremarkable. Appendix not definitively seen. No secondary signs of acute appendicitis. Irregular wall thickening with increased enhancement is noted throughout the anus and anorectal junction with mild wall thickening also noted about the distal sigmoid. Irregular mass within this distribution is noted with ill- defined margins measuring up to approximately 5.4 x 4.1 x 6.5 cm. There is central ulceration of the mass with invasion into the right ischioanal fossa partially invading the right gluteus kevin musculature an right pelvic floor musculature. There may also be invasion into the posterior vagina. Extensive d eep tissue air along this distribution is also noted. Irregular soft tissue nodule measuring 2.1 x 1.4 cm is noted about the right hemipelvis on image 396 series 9 suggestive of metastasis. Trace free pelvic fluid with perirectal stranding. Remaining soft tissues appear unremarkable. Multilevel spondylitic spurring and facet arthrosis. No suspicious lytic or blastic bony lesions identified. Demin eralized appearance of the bones.. IMPRESSION: 1. Large irregular invasive potentially ulcerative mass of the anus, anorectal junction and rectum compatible with patient's reported known colorectal carcinoma. Mass invades the right ischial anal fossa and adjacent musculature as above with possible invasion to the posterior vagina. Correlate with prior imaging. 2. Right pelvic jorge metastasis. 3. No bowel obstruction, pneumatosis or pneumoperitoneum. 4. Mild to moderate urinary bladder wall thickening. Correlate with urinalysis. 5. No acute posttraumatic abnormality of the abdomen or pelvis identified. T-spine CT scan: IMPRESSION: 1. There is no evidence of acute fracture or malalignment involving the thoracic spine. 2. A minimal and suspected acute superior endplate compression fracture is noted involving L1. 3. A minimal and age indeterminant superior endplate compression deformity of T4 is likely chronic. Correlate for point tenderness. L-spine CT scan: IMPRESSION: 1. There is a mild and acute appearing superior endplate compression fracture of L1. Correlate for point tenderness at this level. 2. The remainder of the lumbar spine appears intact. 3. Osteopenia and spondylotic change as above. Right foot x-ray: IMPRESSION: 1. No acute bony abnormality is identified. 2. Osteopenia with heel spurs, postoperative, and degenerative change as above. Left knee [id number] CT head-no acute disease CT angiogram chest: CT angio chest PE protocol CT DOSE: 3005.64 mGy.cm HISTORY: Trauma. Chest pain. PE dizzy, fall TECHNIQUE: Multiaxial CT images of the chest were performed following the intravenous administration of contrast to evaluate the pulmonary arteries. Maximal intensity projection images were also obtained. A dose lowering technique was utilized adhering to the principles of ALARA. COMPARISON STUDY: None. FINDINGS: There is a normal caliber thoracic aorta with no evidence for dissection. There is no evidence for pulmonary embolus. No pleural effusions. No pneumothorax. The liver and spleen are unremarkable. No mediastinal or hilar lymphadenopathy. The central airways are patent. The lungs are clear. IMPRESSION: No evidence for pulmonary embolus. The lungs are clear. ECG Additional Comments: Normal sinus rhythm, rate 98, no ischemic changes Code Status & VTE Plan Code Status Full code VTE Prophylaxis Plan VTE Prophylaxis will be ordered: Yes (1) Compression fracture of L1 vertebra Encounter type: initial encounter Fracture type: closed Qualified Code(s): S32.010A - Wedge compression fracture of first lumbar vertebra, initial encounter for closed fracture
[2018-04-28] MEDS ORDERED: ACETAMINOPHEN 325 MG TAB PO PRN (19:03)
[2018-04-28] MEDS ORDERED: MoRPHine SULFATE 4 MG/ML 1 ML CARP\\VIAL IV PRN (19:03)
[2018-04-28] MEDS ORDERED: ONDANSETRON INJ 2 MG/ML 2 ML VIAL IV PRN (19:03)
[2018-04-28] MEDS ORDERED: POLYETHYLENE (MIRALAX) 17 GM PACK PO PRN (19:03)
[2018-04-28] MEDS ORDERED: ALUMINUM/MAGNESIUM SUSP 30 ML UDC PO PRN (19:03)
[2018-04-28] MEDS: TRAMADOL HCL 50 MG TABLET PO PRN ×2 (19:43→23:51)
[2018-04-28 19:54] LABS: Appearance Urine Turbid (Clear); Bacteria Urine Automated 1+ (Negative); Bilirubin Urine Negative (Negative); Blood Urine Negative (Negative); Color Urine Yellow; Epithelial Cell Urine Auto >30 /lpf (0-5); Glucose Urine UA Negative (Negative); Ketones Urine Trace (Negative); Leukocyte Esterase Urine 2+ (Negative); Nitrite Urine Negative (Negative); Specific Gravity Urine > 1.045 (1.000-1.030); Urobilinogen Urine Negative (Negative); WBC Urine Automated >30 /hpf (0-5); pH Urine 7.5 (4.5-7.5)
[2018-04-28 20:09] LABS: Protein Urine Negative (Negative)
[2018-04-28 20:13] LABS: RBC Urine Automated 0-4 /hpf (0-4)
[2018-04-28] MEDS: HEPARIN SOD 5,000 UNIT/0.5 ML VIAL SQ SCH (20:32)
[2018-04-29 06:08] LABS: Basophils # (auto) 0.02 K/uL (0-0.2); Basophils % (auto) 0.3 %; Eosinophils % (auto) 2.6 %; Hematocrit (blood only) 29.4 % (37-47); Hemoglobin 9.4 g/dL (12.0-16.0); Immature Granulocytes # (auto) 0.03 K/uL (0.00-0.02); Immature Granulocytes % (auto) 0.4 %; Lymphocytes # (auto) 0.64 K/uL (1.2-3.4); Lymphocytes % (auto) 8.3 %; Mean Platelet Volume 8.3 fL (7.4-10.4); Monocytes # (auto) 0.98 K/uL (0.11-0.59); Monocytes % (auto) 12.7 %; Neutrophils # (auto) 5.82 K/uL (1.4-6.5); Neutrophils % (auto) 75.7 %; Platelet Count 483 K/uL (130-400); RDW Coefficient of Variation 16.2 % (11.5-14.5); RDW Standard Deviation 48.1 fL (36.4-46.3); Red Blood Count 3.63 M/uL (4.2-5.4); White Blood Count 7.69 K/uL (4.8-10.8)
[2018-04-29 06:38] LABS: BUN Creatinine Ratio 11.5 (10-20); Calcium 8.6 mg/dl (8.5-10.1); Creatinine Clr Calc Pharmacy 60.1 ml/min; Est GFR (African American) 51.9; Est GFR (Non-African American) 44.8; Potassium 4.2 mmol/L (3.5-5.1)
[2018-04-29 06:43] LABS: Ferritin 161.7 ng/ml (8-388)
[2018-04-29] MEDS: TRAMADOL HCL 50 MG TABLET PO PRN ×4 (06:43→21:17)
[2018-04-29] MEDS: HEPARIN SOD 5,000 UNIT/0.5 ML VIAL SQ SCH ×2 (09:56→20:14)
[2018-04-29] MEDS ORDERED: IRON SUCROSE (VENOFER) 100 MG/5 ML VIAL IV SCH (10:15)
[2018-04-29] MEDS: IRON SUCROSE 300 MG in SODIUM CHLORIDE 0.9% 250 ML IV SCH (10:59)
--- NOTE | 2018-04-29 13:19 | Orthopedic Consultation ---
Date of Consultation April 29, 2018 Assessment & Plan (1) Compression fracture of L1 vertebra: At this time explained the patient she does have a small L1 compression fracture. Majority of people can improve with rest and the passage of time. We can subsequently avoid surgical intervention. She is to lift no more than 5 pounds for the next several weeks. If she continues to decline or has worsening symptoms we may need to obtain an MRI of the lumbar spine for further anatomic detail. At that time we may have to consider surgical intervention. At this time she is comfortable with observation only. Present on Admission?: Yes History of Present Illness Reason for Consultation: Back pain Attending Physician: Paola Lopez MD History of Present Illness This very pleasant 50-year-old female that had a fall last at home. Since that time she has had back pain bilateral ankle pain and some knee discomfort. She comes to the hospital yesterday with worsening symptoms. Upon workup she was diagnosed with an L1 compression fracture involving the superior endplate. Today she states her pain is relatively well controlled. Certainly better than her initial discomfort. She is able to ambulate to the bathroom on her own including transitions in and out of the bed. She denies any radicular complaints or numbness to the lower extremities. Allergies Allergy/AdvReac Type Severity Reaction Status Date / Time No Known Allergies Allergy Unverified 04/28/18 12:26 Home Medications Home Medications Medication Instructions Recorded Confirmed Type ibuprofen 200 mg PO QID PRN 04/28/18 04/28/18 History Patient History Medical History Chronic pain of right ankle Degenerative disc disease HTN (hypertension), benign Rectal cancer Surgical History History of tonsillectomy History of tympanostomy tube placement History of arthroscopy of right knee History of appendectomy History of bunionectomy of right great toe History of section History of ankle surgery Family History Father Heart attack, Onset Age: 45 Mother Diabetes mellitus Glaucoma Other Family history non-contributory Social History Preferred Language: Sami Communication Ability: Effective Beliefs That Will Affect Care: None marital status: Current Living Situation: Spouse current occupational status: disabled Other Information That Helps Us Care for You: No Feels Safe at Home: Yes Safety Concerns: Feels Safe At This Time Smoking Status: Current some day smoker Hx Alcohol Use: Yes Hx Substance Use: No Physical Exam Vital Signs (Past 24 Hours): Last Vital Signs Temp 36.9 C 04/29/18 11:17 Pulse 91 H 04/29/18 11:17 Resp 18 04/29/18 11:17 BP 133/74 04/29/18 11:17 Pulse Ox 100 04/29/18 11:17 Physical Exam: On exam she has reasonable strength testing but tenderness palpation of the right hip. She has no significant tenderness palpation of the paravertebral musculature along the thoracolumbar spine bilaterally. No tension signs. (1) Compression fracture of L1 vertebra Encounter type: initial encounter Fracture type: closed Qualified Code(s): S32.010A - Wedge compression fracture of first lumbar vertebra, initial encounter for closed fracture
--- NOTE | 2018-04-29 13:52 | Surgery Consultation ---
Date of Consultation April 29, 2018 Assessment & Plan (1) Rectal cancer: 58-year-old female with known locally advanced rectal adenocarcinoma status post neoadjuvant chemoradiation therapy several years ago, lost to follow-up, now with locally advanced rectal cancer causing pain and bleeding but no evidence of metastasis on imaging. At this point the patient would likely need an abdominal perineal resection versus pelvic exoneration with permanent end colostomy for palliative versus curative intent. Would recommend outpatient consultation with a colorectal surgeon at the tertiary center for further evaluation. No emergent surgical indication at this time. Surgery will sign off, call with questions or concerns. Present on Admission?: Yes History of Present Illness Attending Physician: Paola Lopez MD History of Present Illness 58-year-old female admitted for workup regarding known rectal cancer. She was d iagnosed in 2016 and underwent neoadjuvant chemoradiation therapy through [facility]. She was planned for abdominal perineal resection, however due to insurance issues as well as dissatisfaction with the surgeons that she saw she did not undergo the procedure. She was essentially lost to follow-up over the past few years. She then presented to Dr. Bee's office due to recent syncopal episodes and falls as well as rectal pain and some bleeding. She was then sent to the emergency department for a full workup. She had a CT scan which showed locally advanced rectal tumor eroding through the local tissues and into the anus. There was some vaginal wall involvement as well as involvement of the gluteus kevin. She also had a few prominent lymph nodes in her pelvis. No bowel obstruction, no evidence of metastatic disease on CT abdomen pelvis or CTA of the chest. Her main complaints appear to be pain and pressure when sitting on her bottom as well as when having bowel movement. She does have occasional bleeding. She was found to have an iron deficiency anemia but her hemoglobin and hematocrit are relatively stable. Allergies Allergy/AdvReac Type Severity Reaction Status Date / Time No Known Allergies Allergy Unverified 04/28/18 12:26 Home Medications Home Medications Medication Instructions Recorded Confirmed Type ibuprofen 200 mg PO QID PRN 04/28/18 04/28/18 History Patient History Medical History Chronic pain of right ankle Degenerative disc disease HTN (hypertension), benign Rectal cancer Surgical History History of tonsillectomy History of tympanostomy tube placement History of arthroscopy of right knee History of appendectomy History of bunionectomy of right great toe History of section History of ankle surgery Family History Father Heart attack, Onset Age: 45 Mother Diabetes mellitus Glaucoma Other Family history non-contributory Social History Preferred Language: Maori Communication Ability: Effective Beliefs That Will Affect Care: None marital status: Current Living Situation: Spouse current occupational status: disabled Other Information That Helps Us Care for You: No Feels Safe at Home: Yes Safety Concerns: Feels Safe At This Time Smoking Status: Current some day smoker Hx Alcohol Use: Yes Hx Substance Use: No Review of Systems 10 point review of systems negative except as above Physical Exam Vital Signs (Past 24 Hours): Last Vital Signs Temp 36.9 C 04/29/18 11:17 Pulse 91 H 04/29/18 11:17 Resp 18 04/29/18 11:17 BP 133/74 04/29/18 11:17 Pulse Ox 100 04/29/18 11:17 Constitutional: WD/WN, vitals as above Eyes: PERRL, conjunctivae normal, anicteric sclerae ENMT: external ear and nose normal, oropharynx normal Neck: trachea midline, no thyromegaly Respiratory: normal respiratory effort, lungs clear to auscultation Cardiovascular: RRR, no murmur, no edema Gastrointestinal (Abdomen): normal bowel sounds, soft, nontender, no hepatosplenomegaly Rectal Exam: + rectal mass (On exam she has a fungating rectal mass extruding out of her anus. Due to discomfort, a DONNY was not performed.) Obese Musculoskeletal: no cyanosis or clubbing, extremities motor strength 5/5 Skin: no rashes, warm and dry Neurologic: PERRL, EOMI, accommodation nl, no face palsy, no dysarthria CN's II-XI intact bilaterally Psychiatric: A+Ox3, euthymic affect Lymphatic: no cervical or axillary lymphadenopathy Results & Data Laboratory Results Laboratory Results - last 24 hr 04/28/18 04/29/18 04/29/18 19:00 05:30 05:30 WBC 7.69 RBC 3.63 L Hgb 9.4 L Hct 29.4 L MCV 81.0 MCH 25.9 MCHC 32.0 RDW Std Deviation 48.1 H RDW Coeff of Carly 16.2 H Plt Count 483 H MPV 8.3 Immature Gran % (Auto) 0.4 Neut % (Auto) 75.7 Lymph % (Auto) 8.3 Carter % (Auto) 12.7 Eos % (Auto) 2.6 Baso % (Auto) 0.3 Immature Gran # (Auto) 0.03 H Neut # (Auto) 5.82 Lymph # (Auto) 0.64 L Carter # (Auto) 0.98 H Eos # (Auto) 0.20 Baso # (Auto) 0.02 Sodium 133 L Potassium 4.2 Chloride 100 Carbon Dioxide 27 Anion Gap 7.0 BUN 15 Creatinine 1.31 H Est Cr Clr Drug Dosing 60.1 Est GFR ( Amer) 51.9 Est GFR (Non-Af Amer) 44.8 BUN/Creatinine Ratio 11.5 Glucose 86 Calcium 8.6 Iron 19 L TIBC 210 L Transferrin 185 L Transferrin % Sat 7 L Ferritin 161.7 Urine Color Yellow Urine Appearance Turbid H Urine pH 7.5 Ur Specific [place] > 1.045 H Urine Protein Negative Urine Glucose (UA) Negative Urine Ketones Trace H Urine Blood Negative Urine Nitrite Negative Urine Bilirubin Negative Urine Urobilinogen Negative Ur Leukocyte Esterase 2+ H Urine WBC (Auto) >30 H Urine RBC (Auto) 0-4 U Hyaline Cast (Auto) 1-5 U Epithel Cells (Auto) >30 H Urine Bacteria (Auto) 1+ H Urine Yeast Not Reportable Diagnostic Findings ABDOMEN AND PELVIS CT WITH IV CONTRAST HISTORY: Acute abdominal pain status post fall. Reported history of rectal carcinoma fall, rectal cancer reported? TECHNIQUE: Multiaxial CT images of the abdomen and pelvis were performed following the use of intravenous contrast. A dose lowering technique was utilized adhering to the principles of ALARA. COMPARISON STUDY: CTA chest, CT lumbar and thoracic spine studies of same day. FINDINGS: The imaged lung bases appear generally clear. Respiratory motion however limits evaluation of the lung bases. There is no pneumatosis or pneumoperitoneum. The imaged inferior cardiac chambers appear unremarkable. Coronary arterial calcifications are noted. The gallbladder, liver, spleen, pancreas and adrenal glands appear unremarkable. The kidneys, and ureters appear unremarkable. Mild to moderate circumferential wall thickening about the urinary bladder. Mildly heterogeneous appearance of the uterus. No adnexal mass lesions. Moderate calcification of the abdominal aorta without aneurysm. Small sliding-type hilar hernia with mild wall thickening about the distal esophagus. There is no small bowel obstruction. Terminal ileum is unremarkable. Appendix not definitively seen. No secondary signs of acute appendicitis. Irregular wall thickening with increased enhancement is noted throughout the anus and anorectal junction with mild wall thickening also noted about the distal sigmoid. Irregular mass within this distribution is noted with ill- defined margins measuring up to approximately 5.4 x 4.1 x 6.5 cm. There is central ulceration of the mass with invasion into the right ischioanal fossa partially invading the right gluteus kevin musculature an right pelvic floor musculature. There may also be invasion into the posterior vagina. Extensive deep tissue air along this distribution is also noted. Irregular soft tissue nodule measuring 2.1 x 1.4 cm is noted about the right hemipelvis on image 396 series 9 suggestive of metastasis. Trace free pelvic fluid with perirectal stranding. Remaining soft tissues appear unremarkable. Multilevel spondylitic spurring and facet arthrosis. No suspicious lytic or blastic bony lesions identified. Demineralized appearance of the bones.. IMPRESSION: 1. Large irregular invasive potentially ulcerative mass of the anus, anorectal junction and rectum compatible with patient's reported known colorectal carcinoma. Mass invades the right ischial anal fossa and adjacent musculature as above with possible invasion to the posterior vagina. Correlate with prior imaging. 2. Right pelvic jorge metastasis. 3. No bowel obstruction, pneumatosis or pneumoperitoneum. 4. Mild to moderate urinary bladder wall thickening. Correlate with urinalysis. 5. No acute posttraumatic abnormality of the abdomen or pelvis identified.
--- NOTE | 2018-04-29 17:07 | Oncology Consultation ---
Date of Consultation April 29, 2018 Assessment & Plan (1) Anemia: Her ferritin is high due to inflammation related to her mass. Her transferrin saturation is low, consistent with iron deficiency. I would give her a dose of IV iron and we will finish correcting her iron deficit as an outpatient. Present on Admission?: Yes (2) Rectal cancer: Amazingly, her disease, while locally quite advanced, has not meta stasized. As a result, she has at least theoretically curable disease. That being said, the surgery required would be very extensive and potentially disfiguring. I would have surgery see her to make sure she is not flat-out unresectable. As long as they do not rule it out entirely, I will make an outpatient referral to a tertiary center to discuss surgery. For now, I would focus on getting her pain under control. Present on Admission?: Yes History of Present Illness Reason for Consultation: Rectal cancer Attending Physician: Paola Lopez MD History of Present Illness Ms. Kwon is a 58 year old woman who I sent in from clinic yesterday for pain management and scans. She has a history of a rectal cancer that was diagnosed in 2016. It was treated with chemoradiation, by reports. She was then offered an APR but it never took place. Whether she refused or had insurance issues or both is unclear, as her recollection of the time was a bit confused. She was seen again by a surgeon in Jun, 2016, who confirmed that she had residual, active rectal cancer. She was again offered surgery which again did not take place, for similar reasons to those in 2016. She was not seen by a physician again until I encountered her. She was in tremendous pain when I saw her. The pain was in her anal area and prevented her from sitting still. She also complained of reduced oral intake and modest weight loss. She also had experienced several falls, including one about 1-2 weeks before I saw her that was associated with a syncopal event. She had scans overnight that show an locally invasive rectal cancer with an enlarged pelvic lymph node but, somewhat surprisingly, no evidence of distant metastases. She was much more comfortable this morning when I saw her. She still had pain, but it was better controlled. Allergies Allergy/AdvReac Type Severity Reaction Status Date / Time No Known Allergies Allergy Unverified 04/28/18 12:26 Home Medications Home Medications Medication Instructions Recorded Confirmed Type ibuprofen 200 mg PO QID PRN 04/28/18 04/28/18 History Patient History Medical History Chronic pain of right ankle Degenerative disc disease HTN (hypertension), benign Rectal cancer Surgical History History of tonsillectomy History of tympanostomy tube placement History of arthroscopy of right knee History of appendectomy History of bunionectomy of right great toe History of section History of ankle surgery Family History Father Heart attack, Onset Age: 45 Mother Diabetes mellitus Glaucoma Other Family history non-contributory Social History Preferred Language: Hebrew Communication Ability: Effective Beliefs That Will Affect Care: None marital status: Current Living Situation: Spouse current occupational status: disabled Other Information That Helps Us Care for You: No Feels Safe at Home: Yes Safety Concerns: Feels Safe At This Time Smoking Status: Current some day smoker Hx Alcohol Use: Yes Hx Substance Use: No Review of Systems Constitutional: + fatigue; no fever and no chills Eyes: no worsening vision Ear, Nose, Mouth, Throat: no epistaxis and no bleeding gums Respiratory: no cough and no dyspnea Cardiovascular: + syncope; no chest pain and no palpitations Gastrointestinal: as per Subjective / HPI Genitourinary (Female): no hematuria and no vaginal discharge Integumentary: no rash and no bleeding lesions Neurologic: no localized weakness and no numbness Hematologic / Lymphatic: no easy bleeding and no lymphadenopathy Physical Exam Vital Signs (Past 24 Hours): Last Vital Signs Temp 37.1 C 04/29/18 15:12 Pulse 86 04/29/18 15:12 Resp 18 04/29/18 15:12 BP 150/84 H 04/29/18 15:12 Pulse Ox 98 04/29/18 15:12 Constitutional: + ill appearing (chronically) and comfortable; no acute distress Eyes: + anicteric sclerae and EOM intact bilaterally ENMT: external ear and nose normal, oropharynx normal Respiratory: normal respiratory effort, lungs clear to auscultation Cardiovascular: RRR, no murmur, no edema Gastrointestinal (Abdomen): normal bowel sounds, soft, nontender, no hepatosp lenomegaly Skin: no rashes, warm and dry Lymphatic: no cervical or axillary lymphadenopathy Results & Data Laboratory Results Abnormal lab results 04/28/18 04/29/18 04/29/18 Range/Units 19:00 05:30 05:30 RBC 3.63 L (4.2-5.4) M/uL Hgb 9.4 L (12.0-16.0) g/dL Hct 29.4 L (37-47) % RDW Std Deviation 48.1 H (36.4-46.3) fL RDW Coeff of Carly 16.2 H (11.5-14.5) % Plt Count 483 H (130-400) K/uL Immature Gran # (Auto) 0.03 H (0.00-0.02) K/uL Lymph # (Auto) 0.64 L (1.2-3.4) K/uL Crenshaw # (Auto) 0.98 H (0.11-0.59) K/uL Sodium 133 L (136-145) mmol/L Creatinine 1.31 H (0.6-1.2) mg/dl Iron 19 L (35-150) mcg/dl TIBC 210 L (250-450) mcg/dl Transferrin 185 L (200-360) mg/dl Transferrin % Sat 7 L (15-50) % Urine Appearance Turbid H (Clear) Ur Specific [place] > 1.045 H (1.000-1.030) Urine Ketones Trace H (Negative) Ur Leukocyte Esterase 2+ H (Negative) Urine WBC (Auto) >30 H (0-5) /hpf U Epithel Cells (Auto) >30 H (0-5) /lpf Urine Bacteria (Auto) 1+ H (Negative) Diagnostic Findings CT A/P 3/: IMPRESSION: 1. Large irregular invasive potentially ulcerative mass of the anus, anorectal junction and rectum compatible with patient's reported known colorectal carcinoma. Mass invades the right ischial anal fossa and adjacent musculature as above with possible invasion to the posterior vagina. Correlate with prior imaging. 2. Right pelvic jorge metastasis. 3. No bowel obstruction, pneumatosis or pneumoperitoneum. 4. Mild to moderate urinary bladder wall thickening. Correlate with urinalysis. 5. No acute posttraumatic abnormality of the abdomen or pelvis identified. CT L spine, 3/4: IMPRESSION: 1. There is a mild and acute appearing superior endplate compression fracture of L1. Correlate for point tenderness at this level. 2. The remainder of the lumbar spine appears intact. 3. Osteopenia and spondylotic change as above. (1) Anemia Anemia type: iron deficiency Iron deficiency anemia type: chronic blood loss Qualified Code(s): D50.0 - Iron deficiency anemia secondary to blood loss (chronic)
--- NOTE | 2018-04-29 19:40 | Hospitalist Progress Note ---
Date of Service April 29, 2018 Assessment & Plan (1) Compression fracture of L1 vertebra: This pt is a 58 yo female with a h/o rectal CA not in remission, whitecoat HTN, , and chronic right ankle pain who presents from the Oncology office with severe lower back pain after a fall on 04/24/18. She reports her legs gave out and often her right ankle will give way due to a chronic injury as she was walking to the bathroom. Her witnessed her fall. She landed on her bottom and had no LOC. She had a lot of pain after that in her left knee and lower back at the waistline that was nonradiating. She denied any numbness or tingling. She denies weakness in her legs and is able to walk, but the standing and sitting positions make the pain much worse. Lying flat makes the pain better. Taking ibuprofen and her 's tramadol have taken the edge off. She had an appt for the first time with Oncology today and had to be brought in by wheelchair to the appt and had such severe pain that she was sent to the ER. She was given morphine 4mg IV x 1 and Zofran, as well as IV APAP and had relief. As for her anorectal CA, she reports initially being treated with XRT and chemo in 2016, and then was told she had to have a colostomy and was fearful of doing this as things weren't explained to her very well. She then went for a second opinion and was told she couldn't have surgery due to not having insurance. She then states she tried to get an appt at [facility] who would not see her. Also, [facility] would not see her as she had previously had XRT. She then was lost to follow up until today's appt with Oncology. She reports daily anal leakage mostly of clear fluid and sometimes of stool, no bleeding. -Admitted for pain control for L1 compression fracture. Fracture is secondary to fall but likely osteoporotic fracture given osteopenia noted on imaging with fall from standing height. Pain is improved with p.o. tramadol alone but still not able to sit on her bottom due to rectal mass pain-can increase tramadol to 100 mg if needed -Continue IV morphine as needed and tramadol p.o. as needed, Zofran as needed for nausea she gets at times with opioids -Would avoid NSAIDs given renal failure and microcytic anemia likely chronic occult GI blood loss due to rectal cancer -Consult orthopedic surgery to see if vertebroplasty would be an option- appreciate consult-recommends no lifting more than 5 pounds for now, no bending over, no brace for now-vertebroplasty if symptoms worsen or pain persists and follow-up in office as needed -PT/OT consult placed (2) Rectal cancer: With large infiltrating anorectal mass-without adequate surgical treatment at the time of diagnosis in 2016 due to what seems like social factors. Had first appointment with hematology/oncology Dr. Bee in the office on the day of admission but appointment canceled due to severe pain -Consult oncology appreciated-recommends IV iron and general surgery consultation -Follow-up in the office after discharge -Anemia likely secondary to rectal cancer -Continue pain control (3) HTN (hypertension), benign: Patient states that she has whitecoat hypertension and her daughter is a nurse who confirms this at the bedside. Blood pressures here are now much improved on the room Continue to follow -We will not start standing medications at this time (4) Knee pain, acute: Left knee pain secondary to fall 3 days prior to admission. X-ray negative for fracture but does have small effusion on exam -Pain control as above -PT/OT consults (5) Anemia: Anemia is microcytic and hemoglobin is at 9-10 with significant iron deficiency on iron studies. Likely secondary to occult GI bleeding from known rectal cancer -Give Venofer 300 mg IV daily times 2-3 days while here and then follow-up with oncology -She cannot tolerate p.o. iron as she has tried in the past -Follow CBC (6) DAVID (acute kidney injury): Likely was acute as creatinine here was 1.53 on admission and is now down to 1.31. She has not follow-up with primary care physician in 10 years -Follow BMP periodically -Avoid nephrotoxins -Renally dose all medications (7) Chronic pain of right ankle: Secondary to a fracture in childhood-sounds like CRPS. Has severe pain with minimal palpation of the ankle for decades. Pain control as above -Consider gabapentin (8) DVT prophylaxis: High risk for DVT given ongoing malignancy and relative immobility due to lumbar spine compression fracture Continue heparin SQ and watch for rectal bleeding Disposition-admit to medical/surgical floor Hopeful for discharge home tomorrow Subjective Pain is improved today with tramadol but still not able to sit on her bottom. She has been ambulating with improved pain. Discussed case with general surgery-recommend colorectal evaluation as an outpatient Discussed case with oncology Patient otherwise has no complaints. No chest pain shortness of breath, no abdominal pain. Review of Systems All systems reviewed & are unremarkable except as noted in HPI & below Physical Exam Vital Signs (Past 24 Hours): Last Vital Signs Temp 37.1 C 04/29/18 15:12 Pulse 86 04/29/18 15:12 Resp 18 04/29/18 15:12 BP 150/84 H 04/29/18 15:12 Pulse Ox 98 04/29/18 16:20 Constitutional: WD/WN, vitals as above Eyes: PERRL, conjunctivae normal, anicteric sclerae ENMT: external ear and nose normal, oropharynx normal Neck: trachea midline, no thyromegaly Respiratory: normal respiratory effort, lungs clear to auscultation Cardiovascular: RRR, no murmur, no edema Gastrointestinal (Abdomen): normal bowel sounds, soft, nontender, no hepatosplenomegaly Rectal Exam: + abnormal visual inspection of rectum (Large fungating mass approximately 10 cm by 5 coming from the anus with foul odor) Musculoskeletal: no cyanosis or clubbing, extremities motor strength 5/5 Spine: lumbar spine normal to inspection and + lumbar spinal tenderness (Over the L1-L2 region in the midline) Knee: + knee abnormal to inspection (Left knee with mild effusion, range of motion 0-100 degrees, positive tenderness to palpation over medial knee) Skin: no rashes, warm and dry Neurologic: moves all extremities and awake; no focal motor deficits Psychiatric: A+Ox3, euthymic affect Results & Data Laboratory Results WBC 7.6 hemoglobin 9.4, platelets 483 Sodium 133, creatinine 1.31 down from 1.53 Iron saturation 7%, ferritin 140 (1) Compression fracture of L1 vertebra Encounter type: initial encounter Fracture type: closed Qualified Code(s): S32.010A - Wedge compression fracture of first lumbar vertebra, initial encounter for closed fracture (2) Anemia Anemia type: iron deficiency Iron deficiency anemia type: chronic blood loss Qualified Code(s): D50.0 - Iron deficiency anemia secondary to blood loss (chronic)
[2018-04-30 07:27] VITALS: BP 124/74; TEMP 97.9; O2SAT 94
[2018-04-30] MEDS: TRAMADOL HCL 50 MG TABLET PO PRN (07:39)
[2018-04-30] MEDS: IRON SUCROSE 300 MG in SODIUM CHLORIDE 0.9% 250 ML IV SCH (09:19)
[2018-04-30] MEDS: HEPARIN SOD 5,000 UNIT/0.5 ML VIAL SQ SCH (09:20)
--- NOTE | 2018-04-30 12:24 | Discharge Summary ---
Date of Service April 30, 2018 Admission HPI Per Admitting Provider This pt is a 58 yo female with a h/o rectal CA not in remission, whitecoat HTN, , and chronic right ankle pain who presents from the Oncology office with severe lower back pain after a fall on 04/24/18. She reports her legs gave out and often her right ankle will give way due to a chronic injury as she was walking to the bathroom. Her witnessed her fall. She landed on her bottom and had no LOC. She had a lot of pain after that in her left knee and lower back at the waistline that was nonradiating. She denied any numbness or tingling. She denies weakness in her legs and is able to walk, but the standing and sitting positions make the pain much worse. Lying flat makes the pain better. Taking ibuprofen and her 's tramadol have taken the edge off. She had an appt for the first time with Oncology today and had to be brought in by wheelchair to the appt and had such severe pain that she was sent to the ER. She was given morphine 4mg IV x 1 and Zofran, as well as IV APAP and had relief. As for her anorectal CA, she reports initially being treated with XRT and chemo in 2016, and then was told she had to have a colostomy and was fearful of doing this as things weren't explained to her very well. She then went for a second opinion and was told she couldn't have surgery due to not having insurance. She then states she tried to get an appt at [facility] who would not see her. Also, [facility] in [facility] would not see her as she had previously had XRT. She then was lost to follow up until today's appt with Oncology. She reports daily anal leakage mostly of clear fluid and sometimes of stool, no bleeding. Principal Diagnosis Back pain, L1 vertebral compression fracture, metastatic rectal cancer Discharge Exam Constitutional WD/WN, vitals as above Eyes PERRL, conjunctivae normal, anicteric sclerae ENMT external ear and nose normal, oropharynx normal Neck trachea midline, no thyromegaly Respiratory normal respiratory effort, lungs clear to auscultation Cardiovascular RRR, no murmur, no edema Gastrointestinal (Abdomen) normal bowel sounds, soft, nontender, no hepatosplenomegaly Musculoskeletal no cyanosis or clubbing, extremities motor strength 5/5 Knee: + knee abnormal to inspection (Left knee with mild effusion, range of motion 0-100 degrees, positive tenderness to palpation over medial knee) Skin no rashes, warm and dry Neurologic moves all extremities and awake; no focal motor deficits Psychiatric A+Ox3, euthymic affect Discharge Data Allergies Allergy/AdvReac Type Severity Reaction Status Date / Time No Known Allergies Allergy Unverified 04/28/18 12:26 Consultations Oncology Orthopedic surgery-spine General Surgery Procedures Performed None Ordered Studies 04/28/18 12:37 CT abd pelvis IV con only Stat CT head/brain wo con Stat CT lumbar spine wo con Stat CT thoracic spine wo con Stat 04/28/18 12:40 CT angio chest PE protocol Stat Hospital Course (1) Compression fracture of L1 vertebra: This pt is a 58 yo female with a h/o rectal CA not in remission, whitecoat HTN, , and chronic right ankle pain who presents from the Oncology office with severe lower back pain after a fall on 04/24/18. She reports her legs gave out and often her right ankle will give way due to a chronic injury as she was walking to the bathroom. Her witnessed her fall. She landed on her bottom and had no LOC. She had a lot of pain after that in her left knee and lower back at the waistline that was nonradiating. She denied any numbness or tingling. She denies weakness in her legs and is able to walk, but the standing and sitting positions make the pain much worse. Lying flat makes the pain better. Taking ibuprofen and her 's tramadol have taken the edge off. She had an appt for the first time with Oncology today and had to be brought in by wheelchair to the appt and had such severe pain that she was sent to the ER. She was given morphine 4mg IV x 1 and Zofran, as well as IV APAP and had relief. As for her anorectal CA, she reports initially being treated with XRT and chemo in 2016, and then was told she had to have a colostomy and was fearful of doing this as things weren't explained to her very well. She then went for a second opinion and was told she couldn't have surgery due to not having insurance. She then states she tried to get an appt at [facility] who would not see her. Also, [facility] in [facility] would not see her as she had previously had XRT. She then was lost to follow up until today's appt with Oncology. She reports daily anal leakage mostly of clear fluid and sometimes of stool, no bleeding. -Admitted for pain control for L1 compression fracture. Fracture is secondary to fall but likely osteoporotic fracture given osteopenia noted on imaging with fall from standing height. Pain is improved with p.o. tramadol alone-we will discharged home with this along with the bowel regimen for constipation -Would avoid NSAIDs given renal failure and microcytic anemia likely chronic occult GI blood loss due to rectal cancer -Consult orthopedic surgery appreciated-vertebroplasty would be an option only i f pain worsens or is not controlled in the next 2-3 weeks--recommends no lifting more than 5 pounds for now, no bending over, no brace for now -PT/OT evaluations were performed (2) Rectal cancer: With large infiltrating anorectal mass-without adequate surgical treatment at the time of diagnosis in 2016 due to what seems like social factors. Had first appointment with hematology/oncology Dr. Bee in the office on the day of admission but appointment canceled due to severe pain -Consult oncology appreciated-recommends IV iron and general surgery consultation -General surgery recommends follow-up with colorectal surgery-this appointment was arranged for her for this Saturday -Follow-up in the cancer center after discharge -Anemia likely secondary to rectal cancer -Continue pain control (3) HTN (hypertension), benign: Patient states that she has whitecoat hypertension and her daughter is a nurse who confirms this at the bedside. Blood pressures here are now much improved Continue to follow -We will not start standing medications at this time (4) Knee pain, acute: Left knee pain secondary to fall 3 days prior to admission. X-ray negative for fracture but does have small effusion on exam -Pain control as above -PT/OT consults (5) Anemia: Anemia is microcytic and hemoglobin is at 9-10 with significant iron deficiency on iron studies. Likely secondary to occult GI bleeding from known rectal cancer -She received 2 doses of Venofer 300 mg IV daily while here and then follow-up with oncology as an outpatient as recommended for future IV iron if needed -She cannot tolerate p.o. iron as she has tried in the past -Follow CBC as an outpatient -Avoid NSAIDs or aspirin-containing products (6) DAVID (acute kidney injury): Likely was acute as creatinine here was 1.53 on admission and is now down to 1.31. She has not follow-up with primary care physician in 10 years -Follow BMP periodically -Avoid nephrotoxins -Renally dose all medications -She should be followed by primary care physician which has also been arranged for her (7) Chronic pain of right ankle: Secondary to a fracture in childhood-sounds like CRPS. Has severe pain with minimal palpation of the ankle for decades. Pain control as above -Consider gabapentin as an outpatient if needed (8) DVT prophylaxis: High risk for DVT given ongoing malignancy and relative immobility due to lumbar spine compression fracture Continue heparin SQ and watch for rectal bleeding Disposition-stable for discharge to home Total Time Total Time Spent Total Time Spent (In Minutes): Greater than 30 minutes Total Time Includes: Examination of the Patient, Discharge Planning and Medication Reconciliation Discharge Plan Discharge Items Patient Disposition: Home - Self-Care Reason For Visit: BACK PAIN Discharge Diagnosis: L1 vertebral compression fracture, back pain Condition: Good Discharge Goals: Decrease discomfort, Diagnostic testing, Improve disease control, Improve function, Learn about illness and Therapeutic intervention Activity: As commented below Lifting: No more than 5 pounds Bathing: No limitations Exercise/Sports: As tolerated Exercise Comment: No bending over or heavy exertion Non-emergency contact: Primary Care Provider, Surgeon and Oncologist Call non-emergency contact if: you have any medication questions, your symptoms worsen, your pain is not controlled, your pain is worsening, your pain is unusual for you, your pain is concerning for you and your temperature is above 101 Follow-up/Referrals: Rosales Mohr DO [Surgeon] - (As needed) Holden Gauthier [Primary Care Provider] - 05/05/18 1:30 pm (Please, follow up with Dr. Gauthier, she will be your new primary care provider, on SaturdayMay 05 at 1:30 pm. *YOU WILL BE SEEING HER IN THE SAME OFFICE THE COLORECTAL SURGEON* THE ADDRESS IS [address] [place] [address] AND IT IS NEXT DOOR TO [facility]. If you need to change this appointment, call the office at [phone].) Jack Matthew MD [Outside Practitioners] - 05/02/18 12:15 pm (Please, follow up with [facility]'s Colorectal Surgeon Dr. Matthew on SaturdayMay 02 at 12:15 pm. *YOU WILL BE SEEING THIS PHYSICIAN IN THE [place] OFFICE* THE OFFICE IS AT [address] [place] [address] IN [place]. YOU WILL SEE [employer] AND [employer] ACROSS THE PARKING LOT FROM THE OFFICE. THE OFFICE IS LOCATED NEXT DOOR TO [facility] If you have any questions or need to change this appointment, call the office at [phone].) Diet: Regular Addtl Provider Instructions: You were admitted for back pain secondary to a compression fracture in your lumbar spine. This will be treated with tramadol as needed for pain. You only need to see the orthopedic surgeon if your pain is worsening or if you develop any weakness, numbness, or tingling in the legs. You were treated with IV iron for your iron deficiency anemia. You should follow-up with hematology/oncology for your anemia and your cancer. You were scheduled with a colorectal surgeon-please keep this appointment as scheduled. Please reschedule an appointment with Dr. Bee for oncology. You are also being treated for an urinary tract infection with Keflex 500 mg twice daily for 7 days. You are also scheduled with a new primary care physician-please keep this appointment as scheduled as well. Prescriptions: New acetaminophen [Mapap (acetaminophen)] 325 mg Tablet 650 mg PO Q4H PRN (Reason: pain) Qty: 30 RF: 0 cephalexin 500 mg Capsule 500 mg PO BID Qty: 13 RF: 0 tramadol 50 mg Tablet 50 - 100 mg PO Q6 PRN (Reason: pain) Qty: 30 RF: 0 Discontinued ibuprofen 200 mg Capsule 200 mg PO QID PRN (Reason: Pain) RF: 0 Stand-Alone Forms: [facility] Discharge Orders: Discharge Order (Routine); Ordered 04/30/18 Ordered By: Paola Lopez Admission Data Admit Date/Time: 04/28/18 17:21 Attending Provider: Paola Lopez Admit Provider: Paola Lopez Primary Care Provider: Holden Gauthier Other Providers: Paola Lopez ; Rosales Mohr ; Solitario Bee ; Kev Montes Service: Medical Other Pending Studies at Discharge: No
[2018-04-30] MEDS ORDERED: cephALEXin 500 MG CAP PO SCH (12:30)
[2018-04-30 13:22] VITALS: PULSE 71
== END 2018-04-30 14:20 | disposition home or self-care (01) | DRG 543 ==
LOC: ED 11:39 → 4E 17:21

== ENCOUNTER 2018-11-03 12:32 | Observation (INO) ==
[2018-11-03] MEDS ORDERED: SODIUM CHLORIDE 0.9% 1000ML 1,000 ML IV SCH (13:30)
[2018-11-03 13:49] LABS: Basophils # (auto) 0.01 K/uL (0-0.2); Basophils % (auto) 0.1 %; Eosinophils % (auto) 2.1 %; Hematocrit (blood only) 30.6 % (37-47); Hemoglobin 9.3 g/dL (12.0-16.0); Immature Granulocytes # (auto) 0.03 K/uL (0.00-0.02); Immature Granulocytes % (auto) 0.3 %; Lymphocytes % (auto) 4.2 %; Mean Corpuscular Hemoglobin 25.5 pg (25-34); Mean Corpuscular Hgb Conc 30.4 g/dL (32-36); Mean Corpuscular Volume 84.1 fL (80-100); Mean Platelet Volume 8.7 fL (7.4-10.4); Monocytes # (auto) 0.37 K/uL (0.11-0.59); Monocytes % (auto) 3.9 %; Neutrophils # (auto) 8.45 K/uL (1.4-6.5); Neutrophils % (auto) 89.4 %; Platelet Count 356 K/uL (130-400); RDW Coefficient of Variation 16.5 % (11.5-14.5); Red Blood Count 3.64 M/uL (4.2-5.4); White Blood Count 9.46 K/uL (4.8-10.8)
[2018-11-03 13:55] LABS: INR 1.1 (0.9-1.1); Partial Thromboplastin Ratio 1.1; Partial Thromboplastin Time 30.5 Seconds (21.0-31.0); Prothrombin Time 11.1 Seconds (9.0-12.0)
[2018-11-03 14:18] LABS: Alanine Aminotransferase 25 U/L (12-78); Albumin Globulin Ratio 0.4 (0.9-2); Albumin Level 2.1 gm/dl (3.4-5.0); Alkaline Phosphatase 122 U/L (45-117); Aspartate Aminotransferase 24 U/L (15-37); BUN Creatinine Ratio 17.3 (10-20); Bilirubin,Total 0.4 mg/dl (0.2-1); Blood Urea Nitrogen 13 mg/dl (7-18); Calcium 8.5 mg/dl (8.5-10.1); Carbon Dioxide 27 mmol/L (21-32); Chloride 100 mmol/L (98-107); Est GFR (African American) 101.8; Est GFR (Non-African American) 87.9; Glucose 117 mg/dl (70-99); Potassium 3.9 mmol/L (3.5-5.1); Sodium 136 mmol/L (136-145); Total Protein 7.1 gm/dl (6.4-8.2)
[2018-11-03] MEDS ORDERED: HYDROmorphone INJ 0.5 MG/0.5 ML SYR IV STA (15:05)
[2018-11-03] MEDS ORDERED: ONDANSETRON INJ 2 MG/ML 2 ML VIAL IV STA (15:05)
--- NOTE | 2018-11-03 16:04 | History & Physical Report ---
Date of Service November 03, 2018 Assessment & Plan (1) Rectal bleed: (2) Rectal cancer: - Admit to med surg - Consult onc - Follows with Dr. Bee as outpatient - Wound care consulted, following as outpatient - Last round of chemo: 5-FU completed 10/29/18- 10/31/18, continue as per oncology - Hgb noted to be slightly decreased at 9.3 today, appears this may be around her baseline of 9-10 but will monitor with serial H&H Q6H with rectal bleed earlier - Consider surgical consultation, [facility], if rebleeds but at this time does not need - Continue diet as tolerated - Tylenol and zofran - Continue pain control with oxycodone and fentanyl patch (3) Compression fracture of L1 vertebra: - Metastatic disease known since kelvin this year - Pain well controlled (4) Hepatic lesion: - On review of CT abd/pelvis there is a 2.5 cm lesion in the right lobe which is concerning for further metastatic disease - Will ask oncology to place recommendations - Follow hepatic profile with am labs - INR 1.1 (5) Anemia: - Hgb stable for now, follow serial H&H with bleed. Likely a chronic bleed with rectal carcinoma. (6) HTN (hypertension), benign: - BP is 139/67 during my exam, noted white coat syndrome. Will continue to monitor (7) Degenerative disc disease: - Noted, stable (8) Chronic pain of right ankle: - noted, stable. Continue pain control as above. (9) Depression: - Continue buspirone and citalopram (10) DVT prophylaxis: - teds, scds, hold on chemical ppx with bleed as above. Dispo: Admit for observation to med surg, likely to remain in the hospital overnight. History of Present Illness Primary Care Provider: Holden Gauthier DO This is a 58 yo F with PMHx of rectal cancer followed by Dr. Bee. Her cancer was initially diagnosed in 2016 and unfortunately was lost to follow up and lacked insurance coverage for some time and therefore did not undergo surgical resection. She has been being treated with chemotherapy of 5-FU and radiation since February 2018. Her last chemotherapy was 10/29/18 - 10/31/18. Pts is present at bedside. He typically changes the dressings over the gluteal fold region and that this morning she had an area which was squirting out blood in a small stream so brought her into the hospital. The patient soaked one ABD in the time it took to get to the hospital, but since changing the dressing again it has not bled. Pt is currently following with wound care as outpatient, and are using dakins solution and ABDs over the area. The patient notes the rectal mass is always painful, but that there is not more pain today compared to usual. She was able to ambulate about the house without any difficulty today, without lightheadedness or dizziness. She had been seen by general surgery at [facility] in [place] within the last week. At that point there was no bleeding. They have been monitoring the mass routinely. Of note she has developed multiple small dark erythematous petechia rash over her extremities, and then also along the trunk where the areas are much founder chairman and chief creative officer in color since last week which are puritic and nonpainful. Labs appear to be WNL other than slightly elevated Alk phos at 122 . No new imaging to review. Allergies Allergy/AdvReac Type Severity Reaction Status Date / Time bee venom protein (honey bee) Allergy Severe Anaphylaxis Unverified 11/03/18 13:33 morphine AdvReac Severe Vomiting Verified 11/03/18 13:33 Penicillins AdvReac Unknown PT STATES Verified 11/03/18 13:33 IT DOESN'T WORK Home Medications Home Medications Medication Instructions Recorded Confirmed Type citalopram 10 mg PO HS 06/03/18 11/03/18 History oxycodone 5 mg PO Q4 PRN 07/28/18 11/03/18 History fentanyl 1 patch TRANSDERMAL Q72H 10/07/18 11/03/18 History sodium hypochlorite [Dakin's 1 irrig TOPICAL HS 10/07/18 11/03/18 History Solution] buspirone 7.5 mg PO BID 11/03/18 11/03/18 History oxycodone 5 mg PO Q8H 11/03/18 11/03/18 History trazodone 50 mg PO HS 11/03/18 11/03/18 History Past Med/Surg History Medical History Anemia Chronic pain of right ankle Degenerative disc disease HTN (hypertension), benign HX OF AND HAS WHITE COAT SYNDROME Rectal cancer (Acute) Initially dx 2016; had chemo and XRT but elected not to have surgery and was lost to f/u. Presented acutely to ED 04/2018. 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 Beliefs That Will Affect Care: None marital status: Current Living Situation: Spouse current occupational status: disabled Feels Safe at Home: Yes Smoking Status: Never smoker Tobacco Type: cigarettes ; Cigarettes Per Day: 1 CIG A DAY ; Second Hand Exposure: No ; Hx Alcohol Use: Yes Hx Substance Use: No Review of Systems Review of Systems: Constitutional: No fever, sweats or chills Eyes: No diplopia, no worsening or blurred vision ENT: normal hearing, no trouble swallowing Respiratory: No cough, sputum, dyspnea at rest or on exertion Cardiovascular: No chest pain, tightness or palpitations Abdomen: No pain, nausea, vomiting, diarrhea or constipation /Rectum: rectal mass as per HPI with bleeding earlier today, no further bleed ing. Musculoskeletal: No joint pain, calf pain, swelling Neurologic: No weakness, numbness/tingling, or balance problems Psychiatric: No anxiety or depression Skin: No rash or itch Physical Exam Physical Exam: General: awake, alert, no apparent distress, + obese Head: Normocephalic, atraumatic ENT: PERRL, EOMI, no pharyngeal exudate, mucous membranes moist Chest: Clear to auscultation, on room air, no adventitious breath sounds Cardiac: Regular rate and rhythm, no murmur, no JVD, normal peripheral pulses, good capillary refill Abdominal: NABS x 4 quadrants, soft, nontender to palpation, no rebound, guarding or tenderness /Rectal: Gluteal cleft open wound with region of invasive masslike structure, nonbleeding, ABD dressing with serosanginous drainage. Extremities: Normal inspection, no peripheral edema or erythema, calfs nontender to palpation Psych: Normal mood and affect Neuro: AAO x 3, no motor deficits, speech is clear Results & Data Vital Signs (Past 12 Hours) Vital Signs Temp Pulse Pulse Resp BP BP Pulse Ox 11/03/18 15:20 69 12 11/03/18 15:10 67 16 11/03/18 15:01 68 13 139/67 11/03/18 15:00 69 15 11/03/18 14:50 66 17 11/03/18 14:40 66 14 11/03/18 14:31 69 19 118/64 11/03/18 14:30 67 67 19 118/64 95 11/03/18 14:20 70 13 11/03/18 14:10 69 17 11/03/18 14:01 71 14 118/69 11/03/18 14:00 70 14 11/03/18 13:50 72 14 11/03/18 13:40 67 17 11/03/18 13:31 73 13 115/66 11/03/18 13:30 69 12 11/03/18 13:20 75 19 11/03/18 13:10 73 13 11/03/18 13:07 74 22 11/03/18 13:01 77 13 107/50 L 11/03/18 12:36 36.4 C L 104 H 20 102/71 97 Code Status & VTE Plan Code Status Full code - discussed with the patient and at bedside Supervising Physician Co-Signing Physician Notes Patient seen and examined, chart reviewed, case discussed with CLARA Sneed and agree with her assessment and plan as documented above. Briefly, patient is a 58-year-old female with history of rectal cancer. She is presently on 5FEU chemotherapy and follows regularly with Dr. Bee. She presents today with increased bleeding from her perirectal lesion. Her partner describes bright red blood with "spurting" blood. Patient denies chest pain, shortness of breath, dizziness. Her hemoglobin today is 9.3 which is slightly lower than prior. On exam she is afebrile, hemodynamically stable, no acute distress HEENT: Normocephalic, atraumatic pupils equal round and reactive to light, neck supple Heart: S1-S2 present, no murmurs rubs or gallops Lungs: CTA, no rales/rhonchi/wheezes Abdomen: Bowel sounds present, soft, nontender, nondistended Extremities: Warm, well-perfused, no clubbing/cyanosis/edema Neuro: Grossly intact Wound: Open gluteal cleft with large mass, serosanguineous drainage, slight malodor, no obvious source of bleeding, no purulence Labs and images reviewed. Normochromic/normocytic anemia at 9.3/30.6. Assessment/plan: Unfortunate 58-year-old female with large invasive rectal cancer, metastases to bone and possibly liver presenting with bleeding lesion. Patient presently hemodynamically stable, H&H near baseline, no symptoms of anemia. -Observation to medical floor -Monitor CBC -Wound care and frequent dressing changes -Oncology consultation appreciated. -We will defer surgical consultation for now as lesion is not bleeding -Remainder of plan as above PG Care Time/CCT Total # of Minutes Spent Total Time Spent with Patient: Total time spent is greater than 50% in coordination of care (as documented) at patient's floor/unit and/or counseling patient: (1) Compression fracture of L1 vertebra Encounter type: initial encounter Fracture type: closed Qualified Code(s): S32.010A - Wedge compression fracture of first lumbar vertebra, initial encounter for closed fracture (2) Anemia Anemia type: iron deficiency Iron deficiency anemia type: chronic blood loss Qualified Code(s): D50.0 - Iron deficiency anemia secondary to blood loss (chronic)
--- NOTE | 2018-11-03 17:11 | Emergency Department Note ---
Entered by Pablo Gavin acting as a scribe for ED Provider Note CHIEF COMPLAINT: Rectal bleed HISTORY OF PRESENT ILLNESS: The patient is a 58 year old female who presents to the Emergency Room with complaints of constant rectal bleeding that started today, per the . The states that the patient was diagnosed with rectal cancer in 2016, but only completed chemotherapy at this time. The patient then had acute symptoms in February 2018 so a few months after she underwent another round of chemotherapy. In July of 2018, the patient's symptoms worsened and she became septic causing her to be transferred to [facility] in [place] for emergency surgery on her cancer. The patient had a colostomy bag put in during the procedure but her did not noticed any blood in the ostomy. The notes that the patient has constant bleeding from her rectum due to the wound from her surgery, but the states today the blood was "squirting" out of the wound. The patient adds that she has some tenderness around the area but notes this has been chronic since the diagnosis. The also mentioned that the patient has a blood transfusion scheduled for 2 days given her history of anemia. The patient also has a rash on her upper and lower extremities that has been present since going through chemotherapy. Her last chemotherapy session ended just 3 days ago, per the . The patient's EMR including a physical exam from October 23, 2018 showed positive full-thickness ulceration of the sacrum. 12.8 x 5.0 x 3.8cm. Wound base with 80% central elevated mass. Moderate nonodorous brown tinged serous drainage. Periwound without erythema, induration, edema or crepitus. The patient did demonstrate pain on palpation of the area. Pt denies LOC, headache, fevers, chills, diaphoresis, visual changes, neck pain, chest pain, breathing difficulties, nausea, vomiting, abdominal pain, back pain, urinary symptoms, numbness, weakness, lymphadenopathy, or other complaints. REVIEW OF SYSTEMS: See HPI for pertinent positives and negatives. A total of ten systems were reviewed and were otherwise negative. PMHx/PSHx: HTN, Rectal cancer, Sepsis, Anemia, Mass of anus, Compression fracture of L1, Tonsillectomy, Appendectomy, Ankle surgery SOCIAL HISTORY: Patient lives at home. PHYSICAL EXAM: GENERAL: Awake, alert, well-appearing, in no distress HENT: Normocephalic, atraumatic. Oropharynx unremarkable. EYES: Normal conjunctiva. Sclera non-icteric. NECK: Inspection normal. Non-tender. Supple. No nuchal rigidity. FROM. No masses. RESPIRATORY: Clear to auscultation. No wheezes. No rales. Normal respiratory effort. CARDIAC: Normal rate. Normal rhythm. No murmurs. No rubs. Extremities warm and well perfused. Pulses equal. No JVD. GI: Soft, non-distended. No tenderness to palpation. No rebound or guarding. No masses. RECTAL: Deferred. MUSCULOSKELETAL: Atraumatic. Chest examination reveals no tenderness. The back is symmetrical on inspection without obvious abnormality. There is no CVA tenderness to palpation. No joint edema. LOWER EXTREMITIES: Calves are equal size bilaterally and non-tender. No edema. No discoloration. NEURO: Normal sensorium. No sensory or motor deficits noted. SKIN: No rash or jaundice noted. EMERGENCY DEPARTMENT COURSE: 1334: Past medical records reviewed. The patient was evaluated in room A03, and a complete history and physical examination were performed. 1500: I spoke to Dr. Bagley - Oncology about the patient's case. He stated he is not directly familiar with the patient but he said it does not sound like there is any intervention that can be done by oncology at this point. 1530: Patient reevaluated. Discussed observation in the hospital due to bleeding and her rectal cancer. Patient in agreement. Feeling better after pain control. 1545: Discussed case with Dr. Escalona of internal medicine. Patient will be evaluated further management per. MEDICAL DECISION MAKING: Prior records/ancillary studies reviewed. Triage Nursing notes reviewed and agree them. Additional history obtained from the family. The patient's history was concerning for possible gastrointestinal bleeding. Differential diagnosis: Etiologies such as diverticulosis, AVM, coagulopathy, colitis, inflammatory bowel disease, malignancy,Subha-Renee tear, esophagitis, peptic ulcer disease, variceal bleed, gastritis, epistaxis, fissure, hemorrhoids, as well as others were entertained. Physical exam: As above. ER treatment provided: IV Dilaudid IV Zofran On reassessment the patient felt better. Diagnostics interpreted by me: The labs revealed mild anemia on CBC. No leukocytosis. Chemistry panel unremarkable. Imaging studies: Deferred The patient has a significant rectal mass and distortion of her anatomy. She had a moderate amount of bleeding which is since stopped. She is anemic. She needs to be observed as her blood counts need to be rechecked and if she has additional problems she may need transfusion. Consultation: A consultation was placed with the hospitalist. The case was discussed and diagnostics were reviewed. The patient was evaluated in the ER for further treatment. IMPRESSION: Rectal bleed Rectal mass PLAN: [] The scribe's documentation has been prepared under my direction and personally reviewed by me in its entirety. I confirm that the note above accurately reflects all work, treatment, procedures, and medical decision making performed by me. Impression & Plan Rectal bleed, Rectal mass Past Med/Surg History Medical History Anemia Chronic pain of right ankle Degenerative disc disease HTN (hypertension), benign HX OF AND HAS WHITE COAT SYNDROME Rectal cancer (Acute) Initially dx 2015; had chemo and XRT but elected not to have surgery and was lost to f/u. Presented acutely to ED 04/2018. 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 Beliefs That Will Affect Care: None marital status: Current Living Situation: Spouse current occupational status: disabled Feels Safe at Home: Yes Smoking Status: Never smoker Tobacco Type: cigarettes ; Cigarettes Per Day: 1 CIG A DAY ; Second Hand Exposure: No ; Hx Alcohol Use: Yes Hx Substance Use: No Results & Data Vital Signs Vital Signs - 24 hr 11/03/18 12:36 11/03/18 13:01 11/03/18 13:07 Temperature 36.4 C L Temperature Source Oral Sepsis Recent Fever Within 48 Hours No Sepsis New/Unexplained Change in Mental Status No Sepsis Action Taken by Nursing No Action Required Pulse Rate 104 H 77 74 Pulse Rate [Apical] Pulse Rhythm [Apical] Respiratory Rate 20 13 22 Respiratory Effort / Characteristics Respiratory Depth Respiratory Pattern Blood Pressure 102/71 107/50 L Blood Pressure [Right Arm] Blood Pressure Mean 81 69 Blood Pressure Mean [Right Arm] Pulse Oximetry 97 Oxygen Delivery Method Room Air 11/03/18 13:10 11/03/18 13:20 11/03/18 13:30 Temperature Temperature Source Sepsis Recent Fever Within 48 Hours Sepsis New/Unexplained Change in Mental Status Sepsis Action Taken by Nursing Pulse Rate 73 75 69 Pulse Rate [Apical] Pulse Rhythm [Apical] Respiratory Rate 13 19 12 Respiratory Effort / Characteristics Respiratory Depth Respiratory Pattern Blood Pressure Blood Pressure [Right Arm] Blood Pressure Mean Blood Pressure Mean [Right Arm] Pulse Oximetry Oxygen Delivery Method 11/03/18 13:31 11/03/18 13:40 11/03/18 13:50 Temperature Temperature Source Sepsis Recent Fever Within 48 Hours Sepsis New/Unexplained Change in Mental Status Sepsis Action Taken by Nursing Pulse Rate 73 67 72 Pulse Rate [Apical] Pulse Rhythm [Apical] Respiratory Rate 13 17 14 Respiratory Effort / Characteristics Respiratory Depth Respiratory Pattern Blood Pressure 115/66 Blood Pressure [Right Arm] Blood Pressure Mean 82 Blood Pressure Mean [Right Arm] Pulse Oximetry Oxygen Delivery Method 11/03/18 14:00 11/03/18 14:01 11/03/18 14:10 Temperature Temperature Source Sepsis Recent Fever Within 48 Hours Sepsis New/Unexplained Change in Mental Status Sepsis Action Taken by Nursing Pulse Rate 70 71 69 Pulse Rate [Apical] Pulse Rhythm [Apical] Respiratory Rate 14 14 17 Respiratory Effort / Characteristics Respiratory Depth Respiratory Pattern Blood Pressure 118/69 Blood Pressure [Right Arm] Blood Pressure Mean 85 Blood Pressure Mean [Right Arm] Pulse Oximetry Oxygen Delivery Method 11/03/18 14:20 11/03/18 14:30 11/03/18 14:31 Temperature Temperature Source Sepsis Recent Fever Within 48 Hours Sepsis New/Unexplained Change in Mental Status Sepsis Action Taken by Nursing Pulse Rate 70 67 69 Pulse Rate [Apical] 67 Pulse Rhythm [Apical] Regular Respiratory Rate 13 19 19 Respiratory Effort / Characteristics Non-Labored Spontaneous Respiratory Depth Normal Respiratory Pattern Regular Blood Pressure 118/64 Blood Pressure [Right Arm] 118/64 Blood Pressure Mean 82 Blood Pressure Mean [Right Arm] 82 Pulse Oximetry 95 Oxygen Delivery Method Room Air 11/03/18 14:40 11/03/18 14:50 11/03/18 15:00 Temperature Temperature Source Sepsis Recent Fever Within 48 Hours Sepsis New/Unexplained Change in Mental Status Sepsis Action Taken by Nursing Pulse Rate 66 66 69 Pulse Rate [Apical] Pulse Rhythm [Apical] Respiratory Rate 14 17 15 Respiratory Effort / Characteristics Respiratory Depth Respiratory Pattern Blood Pressure Blood Pressure [Right Arm] Blood Pressure Mean Blood Pressure Mean [Right Arm] Pulse Oximetry Oxygen Delivery Method 11/03/18 15:01 11/03/18 15:10 11/03/18 15:20 Temperature Temperature Source Sepsis Recent Fever Within 48 Hours Sepsis New/Unexplained Change in Mental Status Sepsis Action Taken by Nursing Pulse Rate 68 67 69 Pulse Rate [Apical] Pulse Rhythm [Apical] Respiratory Rate 13 16 12 Respiratory Effort / Characteristics Respiratory Depth Respiratory Pattern Blood Pressure 139/67 Blood Pressure [Right Arm] Blood Pressure Mean 91 Blood Pressure Mean [Right Arm] Pulse Oximetry Oxygen Delivery Method Home Medications Current Medication List: was personally reviewed by me Laboratory Data Attestation: I reviewed the patient's lab results. Result diagrams: 11/03/18 13:25 11/03/18 13:25 Lab Results 11/03/18 11/03/18 11/03/18 Range/Units 13:25 13:25 13:25 WBC 9.46 (4.8-10.8) K/uL RBC 3.64 L (4.2-5.4) M/uL Hgb 9.3 L (12.0-16.0) g/dL Hct 30.6 L (37-47) % MCV 84.1 (80-100) fL MCH 25.5 (25-34) pg MCHC 30.4 L (32-36) g/dL RDW Std Deviation 51.0 H (36.4-46.3) fL RDW Coeff of Carly 16.5 H (11.5-14.5) % Plt Count 356 (130-400) K/uL MPV 8.7 (7.4-10.4) fL Immature Gran % (Auto) 0.3 % Neut % (Auto) 89.4 % Lymph % (Auto) 4.2 % [place] % (Auto) 3.9 % Eos % (Auto) 2.1 % Baso % (Auto) 0.1 % Immature Gran # (Auto) 0.03 H (0.00-0.02) K/uL Neut # (Auto) 8.45 H (1.4-6.5) K/uL Lymph # (Auto) 0.40 L (1.2-3.4) K/uL [place] # (Auto) 0.37 (0.11-0.59) K/uL Eos # (Auto) 0.20 (0-0.5) K/uL Baso # (Auto) 0.01 (0-0.2) K/uL PT 11.1 (9.0-12.0) Seconds INR 1.1 (0.9-1.1) APTT 30.5 (21.0-31.0) Seconds PTT Ratio 1.1 Sodium 136 (136-145) mmol/L Potassium 3.9 (3.5-5.1) mmol/L Chloride 100 (98-107) mmol/L Carbon Dioxide 27 (21-32) mmol/L Anion Gap 9.0 (3-11) BUN 13 (7-18) mg/dl Creatinine 0.75 (0.6-1.2) mg/dl Est Cr Clr Drug Dosing Not Reportable Est GFR ( Amer) 101.8 Est GFR (Non-Af Amer) 87.9 BUN/Creatinine Ratio 17.3 (10-20) Glucose 117 H (70-99) mg/dl Calcium 8.5 (8.5-10.1) mg/dl Total Bilirubin 0.4 (0.2-1) mg/dl AST 24 (15-37) U/L ALT 25 (12-78) U/L Alkaline Phosphatase 122 H (45-117) U/L Total Protein 7.1 (6.4-8.2) gm/dl Albumin 2.1 L (3.4-5.0) gm/dl Globulin 5.0 H (2.5-4.0) gm/dl Albumin/Globulin Ratio 0.4 L (0.9-2) Blood Type Antibody Screen 11/03/18 Range/Units 13:25 WBC (4.8-10.8) K/uL RBC (4.2-5.4) M/uL Hgb (12.0-16.0) g/dL Hct (37-47) % MCV (80-100) fL MCH (25-34) pg MCHC (32-36) g/dL RDW Std Deviation (36.4-46.3) fL RDW Coeff of Carly (11.5-14.5) % Plt Count (130-400) K/uL MPV (7.4-10.4) fL Immature Gran % (Auto) % Neut % (Auto) % Lymph % (Auto) % [place] % (Auto) % Eos % (Auto) % Baso % (Auto) % Immature Gran # (Auto) (0.00-0.02) K/uL Neut # (Auto) (1.4-6.5) K/uL Lymph # (Auto) (1.2-3.4) K/uL [place] # (Auto) (0.11-0.59) K/uL Eos # (Auto) (0-0.5) K/uL Baso # (Auto) (0-0.2) K/uL PT (9.0-12.0) Seconds INR (0.9-1.1) APTT (21.0-31.0) Seconds PTT Ratio Sodium (136-145) mmol/L Potassium (3.5-5.1) mmol/L Chloride (98-107) mmol/L Carbon Dioxide (21-32) mmol/L Anion Gap (3-11) BUN (7-18) mg/dl Creatinine (0.6-1.2) mg/dl Est Cr Clr Drug Dosing Est GFR ( Amer) Est GFR (Non-Af Amer) BUN/Creatinine Ratio (10-20) Glucose (70-99) mg/dl Calcium (8.5-10.1) mg/dl Total Bilirubin (0.2-1) mg/dl AST (15-37) U/L ALT (12-78) U/L Alkaline Phosphatase (45-117) U/L Total Protein (6.4-8.2) gm/dl Albumin (3.4-5.0) gm/dl Globulin (2.5-4.0) gm/dl Albumin/Globulin Ratio (0.9-2) Blood Type A Positive Antibody Screen NEGATIVE Administered Medications Sodium Chloride (Nss 1000ml) 1,000 mls @ 100 mls/hr IV .Q10H VEGA Stop: 11/03/18 23:29 Last Admin: 11/03/18 13:40 Dose: 100 mls/hr Documented by: [id number] Discontinued Medications Hydromorphone HCl (Dilaudid) 0.5 mg IV NOW STA Stop: 11/03/18 15:06 Last Admin: 11/03/18 15:13 Dose: 0.5 mg Documented by: [id number] Ondansetron HCl (Zofran) 4 mg IV NOW STA Stop: 11/03/18 15:06 Last Admin: 11/03/18 15:13 Dose: 4 mg Documented by: [id number] ECG Data Attestation: I personally reviewed and interpreted this ECG as follows: Indication: other (Rectal bleed) Rate (beats per minute): 81 Rhythm: normal sinus Findings: + other (Poor r wave progression) and + Q waves (Anterolateral); no PVC and no ST elevation Blood Pressure Blood Pressure Findings: Normal blood pressure Discharge Plan Visit Data Chief Complaint: Rectal Bleed Stated Complaint: BLEEDING RECTUM ED Provider: Rodrigo Gonzalez Discharge Problem: Rectal bleed, Rectal mass Forms Stand Alone Forms: My [facility] Prescriptions Prescriptions: No Action oxycodone 5 mg tablet 5 mg PO Q4 PRN (Reason: Pain) RF: 0 Dakin's Solution 0.25 % Solution 1 irrig TOPICAL HS RF: 0 fentanyl 37.5 mcg/hour Patch 72 Hour 1 patch TRANSDERMAL Q72H RF: 0 citalopram 10 mg tablet 10 mg PO HS RF: 0 trazodone 50 mg tablet 50 mg PO HS RF: 0 buspirone 7.5 mg tablet 7.5 mg PO BID RF: 0 oxycodone 5 mg tablet 5 mg PO Q8H RF: 0 Referrals Referrals: Holden Gauthier DO [Primary Care Provider] - The scribe's documentation has been prepared under my direction and personally reviewed by me in its entirety. I confirm that the note above accurately reflects all work, treatment, procedures, and medical decision making performed by me.
[2018-11-03] MEDS ORDERED: OXYCODONE HCL IR 5 MG TAB (IMMEDIATE RELEASE) PO PRN (19:41)
[2018-11-03] MEDS ORDERED: NON-FORMULARY MEDICATION (Fentanyl 1 PATCH) TD SCH (19:41)
[2018-11-03] MEDS ORDERED: ACETAMINOPHEN 325 MG TAB PO PRN (19:41)
[2018-11-03] MEDS ORDERED: ONDANSETRON INJ 2 MG/ML 2 ML VIAL IV PRN (19:41)
[2018-11-03] MEDS: OXYCODONE HCL IR 5 MG TAB (IMMEDIATE RELEASE) PO SCH (20:35)
[2018-11-03 20:53] LABS: Hematocrit (blood only) 29.2 % (37-47); Hemoglobin 8.7 g/dL (12.0-16.0)
[2018-11-03 21:21] LABS: Alanine Aminotransferase 22 U/L (12-78); Alkaline Phosphatase 126 U/L (45-117); Aspartate Aminotransferase 25 U/L (15-37); Bilirubin Direct < 0.1 mg/dl (0-0.2); Bilirubin,Total 0.3 mg/dl (0.2-1); Total Protein 6.8 gm/dl (6.4-8.2)
[2018-11-03] MEDS: CITALOPRAM 20 MG TAB PO SCH (21:32)
[2018-11-03] MEDS: BUSPIRONE HCL 7.5 MG TAB PO SCH (21:32)
[2018-11-03] MEDS: TRAZODONE HCL 50 MG TAB PO SCH (21:32)
[2018-11-03] MEDS: DAKIN'S SOLN 0.25% HALF STRENGTH 473ML BTL IR SCH (21:56)
[2018-11-04] MEDS: HEPARIN 100 UNIT/ML 5ML FLUSH FLUSH PRN (02:24)
[2018-11-04 02:48] LABS: Hematocrit (blood only) 28.6 % (37-47); Hemoglobin 8.5 g/dL (12.0-16.0); Mean Corpuscular Hgb Conc 29.7 g/dL (32-36); Mean Corpuscular Volume 84.1 fL (80-100); Mean Platelet Volume 8.4 fL (7.4-10.4); Platelet Count 340 K/uL (130-400); RDW Coefficient of Variation 16.5 % (11.5-14.5); White Blood Count 7.32 K/uL (4.8-10.8)
[2018-11-04] MEDS: OXYCODONE HCL IR 5 MG TAB (IMMEDIATE RELEASE) PO SCH ×3 (02:58→19:47)
[2018-11-04 03:06] LABS: BUN Creatinine Ratio 20.4 (10-20); Calcium 8.4 mg/dl (8.5-10.1); Creatinine Clr Calc Pharmacy 121.1 ml/min; Est GFR (African American) 117.8; Est GFR (Non-African American) 101.6; Potassium 3.8 mmol/L (3.5-5.1)
[2018-11-04 03:09] LABS: Albumin Globulin Ratio 0.4 (0.9-2); Bilirubin,Total 0.3 mg/dl (0.2-1); Globulin 4.9 gm/dl (2.5-4.0); Total Protein 6.9 gm/dl (6.4-8.2)
--- NOTE | 2018-11-04 08:29 | Consultation Report ---
DATE OF CONSULTATION: 11/04/2018 ONCOLOGY CONSULTATION REASON FOR CONSULTATION: Locally advanced rectal cancer with active rectal bleeding. HISTORY OF PRESENT ILLNESS: Kelsey Kwon is a pleasant and unfortunate 58-year-old patient of Dr. Solitario Bee's diagnosed with locally advanced rectal cancer in 2015 and was unfortunately lost to follow up because of insurance issues. More recently, Dr. Bee had started her on salvage FOLFOX chemotherapy, last dose administered on 10/29/2018. Thus far, seems to be doing reasonably well with tolerance. She also received intravenous iron therapy that day as well. This patient has been battling with an unresectable large rectal mass for quite some time. Apparently after she was initially diagnosed in 2015, she was lost to follow up because of insurance coverage and did not undergo the surgical resection. Surprisingly, her disease did not metastasize; however, the primary lesion has continued to grow precipitously. Again, she received her third course of FOLFOX on the . Apparently developed pretty brisk rectal bleeding noted by her , which prompted her visit to our Emergency Room. She apparently had been in a longterm rehabilitating over the past couple of months and has only been home for about 2 weeks. She was seen by her general surgeon at the [facility] in [place] last week when there was no active bleeding noted. She has been admitted to the medical service to look into possible wound care issues and rectal bleeding. PAST MEDICAL HISTORY: Significant for iron-deficiency anemia, chronic ankle pain, anxiety and a locally advanced rectal cancer. PAST SURGICAL HISTORY: Includes tonsillectomy, tympanostomy, arthroscopy of the right knee, appendectomy, bunionectomy of the right great toe, section x2, ankle surgery and colon resection. MEDICATIONS: Prior to admission include citalopram 10 mg p.o. at bedtime, oxycodone 5 mg p.o. q.4 hours p.r.n., fentanyl patch - dose unknown topically q.72 hours, Dakin solution 1 irrigation topically at bedtime for the rectal lesion, buspirone 7.5 mg p.o. b.i.d., trazodone 50 mg p.o. at bedtime. ALLERGIES: PENICILLIN, MORPHINE AND BEE VENOM. SOCIAL HISTORY: She is currently disabled. She lives with her spouse. Nonsmoker, nondrinker, non-illicit drug user. FAMILY HISTORY: Father at age 45 from myocardial infarction. She has maternal aunts on her mother's side with breast and ovarian cancers. REVIEW OF SYSTEMS: As per HPI, most notably for a vigorous rectal bleed. CONSTITUTIONAL: Negative for fevers, chills or sweats. She is not anorexic or losing weight. SKIN: No rashes or lesions. No history of dermatoses. HEENT: Negative for headaches, lightheadedness or dizziness. No acute visual or hearing deficits. No sinus symptoms, sore throat or dysphagia. LYMPHATICS: No history of lymphadenopathy. CARDIAC: Negative for coronary artery disease, no angina or palpitations. PULMONARY: Negative for shortness of breath, dyspnea or orthopnea. No cough or hemoptysis. GASTROINTESTINAL: Negative for abdominal pain, nausea, vomiting, diarrhea or constipation. Positive for rectal bleeding. GENITOURINARY: No hematuria, dysuria, or urinary incontinence. PSYCHIATRIC: Positive for anxiety by history. MUSCULOSKELETAL: Negative for muscle weakness. No new arthralgias or myalgias. ENDOCRINE: Negative for diabetes or thyroid disease. NEUROLOGIC: Negative for seizure, stroke, or migraine headache. HEMATOLOGIC: Positive for normocytic normochromic anemia. PHYSICAL EXAMINATION: GENERAL: A 58-year-old female patient with a flat affect, in no acute distress. VITAL SIGNS: Temperature 36.8, pulse 65, respiratory rate 18, blood pressure 100/58. SKIN: Warm, dry, noncyanotic without petechia, rash or ecchymosis. HEENT: Head is atraumatic, normocephalic. Eyes: PERRLA, EOMI. Sclerae nonicteric. No conjunctival injection. Nares patent without rhinorrhea or discharge. Throat is clear. Tongue is midline. Mucous membranes are moist. NECK: Supple without JVD or thyromegaly. LYMPHATICS: No cervical or supraclavicular palpable nodes. HEART: Regular rate and rhythm. No clicks, rubs, murmurs or gallops. LUNGS: Clear to auscultation bilaterally. ABDOMEN: Soft, nontender, nondistended. EXTREMITIES: No clubbing, cyanosis or edema. NEUROLOGICAL: The patient is awake, alert, and oriented x3. Cranial nerves are grossly intact. No gross motor or sensory deficits are noted. LABORATORY DATA: WBC count 7320, hemoglobin 8.5, platelet count 340,000. Sodium 138, potassium 3.8, chloride 103, carbon dioxide 30, BUN 12, creatinine 0.58, albumin 2.0. IMPRESSION: 1. Active rectal bleeding from primary rectal mass. 2. Hypoalbuminemia. 3. History of iron deficiency. 4. Status post FOLFOX chemotherapy. PLAN: Kelsey is a very pleasant unfortunate 58-year-old female patient who was diagnosed with a primary rectal CA back in 2015, was lost to follow up because of insurance issues and unfortunately did not receive appropriate treatment. She is now under Dr. Bee's care, recently started FOLFOX chemotherapy, last administered on 10/29. Yesterday, she developed a vigorous rectal bleeding noted by her , necessitating her visit to our Emergency Room. To Kelsey's knowledge, she has never received palliative radiation therapy. She regularly follows with a surgeon at [facility] and was seen last week with no active bleeding. May consider a general surgery consultation, perhaps have radiation oncology render an opinion for palliative radiation therapy to control bleeding. Would continue transfusional support. Perhaps a dose of iron sucrose would be reasonable as well considering her ongoing losses. I believe she is due for chemotherapy next week. I will advise Dr. Bee of the patient's admission. Agree with wound care. We will continue to follow Kelsey periodically throughout the hospital stay.
[2018-11-04] MEDS ORDERED: fentaNYL 12 MCG/HR TDSY TD SCH (09:00)
[2018-11-04] MEDS ORDERED: fentaNYL 25 MCG/HR TDSY TD SCH (09:00)
[2018-11-04] MEDS: BUSPIRONE HCL 7.5 MG TAB PO SCH ×2 (10:43→20:14)
--- NOTE | 2018-11-04 12:12 | Surgery Consultation ---
Date of Consultation November 04, 2018 Assessment & Plan (1) Rectal cancer: She has not had any further bleeding. Continue local wound care. We could treat minor bleeding if this occurs again, any other issues should be addressed by colorectal surgery. History of Present Illness Attending Physician: Law Winston History of Present Illness 58 y/o female known to our service for advanced rectal cancer and A-port placement in May. She has been following with [facility] colorectal surgery. She saw Dr. Mares recently at [facility], with plans to follow-up again after her chemotherapy in about 12 weeks. Her noticed blood "squirting" from her sacral lesion yesterday during dressing change. She was admitted for observation. No further bleeding noticed, dressing was changed earlier this morning. Allergies Allergy/AdvReac Type Severity Reaction Status Date / Time bee venom protein (honey bee) Allergy Severe Anaphylaxis Unverified 11/03/18 13:33 morphine AdvReac Severe Vomiting Verified 11/03/18 13:33 Penicillins AdvReac Unknown PT STATES Verified 11/03/18 13:33 IT DOESN'T WORK Home Medications Home Medications Medication Instructions Recorded Confirmed Type citalopram 10 mg PO HS 06/03/18 11/03/18 History oxycodone 5 mg PO Q4 PRN 07/28/18 11/03/18 History fentanyl 1 patch TRANSDERMAL Q72H 10/07/18 11/03/18 History sodium hypochlorite [Dakin's 1 irrig TOPICAL HS 10/07/18 11/03/18 History Solution] buspirone 7.5 mg PO BID 11/03/18 11/03/18 History oxycodone 5 mg PO Q8H 11/03/18 11/03/18 History trazodone 50 mg PO HS 11/03/18 11/03/18 History Patient History Medical History Anemia Chronic pain of right ankle Degenerative disc disease HTN (hypertension), benign HX OF AND HAS WHITE COAT SYNDROME Rectal cancer (Acute) Initially dx 2015; had chemo and XRT but elected not to have surgery and was lost to f/u. Presented acutely to ED 04/2018. Anxiety disorder (Acute) Central venous catheter in place (Acute) SOB (shortness of breath) WITH STAIRS Surgical History History of tonsillectomy History of tympanostomy tube placement History of arthroscopy of right knee History of appendectomy History of bunionectomy of right great toe History of section X 2 History of ankle surgery History of colon resection (Acute) Family History Father Myocardial infarction, Onset Age: 45 Mother Diabetes Glaucoma Other Family history non-contributory Social History Preferred Language: Indian Communication Ability: Effective Sharepoint Admin Required: No Beliefs That Will Affect Care: None marital status: Current Living Situation: Spouse current occupational status: disabled Other Information That Helps Us Care for You: No Feels Safe at Home: Yes Safety Concerns: Feels Safe At This Time Smoking Status: Never smoker Tobacco Type: cigarettes ; Cigarettes Per Day: 1 CIG A DAY ; Second Hand Exposure: No ; Hx Alcohol Use: No Hx Substance Use: No Review of Systems Constitutional: + fatigue (after chemo last week) Physical Exam Gastrointestinal (Abdomen): Rectal Exam: + rectal lesions (moist to dry dreesing in place, no blood on current dressing) Results & Data Vital Signs (Past 12 Hours) Vital Signs Temp Pulse Resp BP Pulse Ox 11/04/18 07:17 36.8 C 65 18 100/58 L 95 11/04/18 04:16 37.0 C 62 18 99/53 L 94 PG Care Time/CCT Total # of Minutes Spent Total Time Spent with Patient: Total time spent is greater than 50% in coordination of care (as documented) at patient's floor/unit and/or counseling patient:
--- NOTE | 2018-11-04 14:54 | Radiation OncologyConsultation ---
Date of Consultation November 04, 2018 Assessment & Plan (1) Rectal mass: Assessment: Ms. Kwon is a 58-year-old female who presented with a rectal cancer in 1999 and . She was treated with preoperative chemoradiation. The radiation was delivered by Dr. Binu Chandra at [facility] and received systemic 5-FU. Patient was scheduled to proceed with surgery but apparently refused because of a wish to avoid colostomy. Unfortunately by 2016 there was evidence of locally recurrent disease. Surgery was again offered and recommended and patient again refused. Since then patient has not been seen until February of this year when studies initially showed significant local progression of disease in the anal and pelvic region but no evidence of metastatic disease. Patient was started on FOLFOX chemotherapy. Unfortunately she has subsequently shown evidence of metastatic disease to the retroperitoneal lymph nodes and liver and has continued on chemotherapy with 3 cycles. Last cycle was completed on October 29, 2018. Patient has been experiencing significant pain for the past several months and is taking Duragesic patch and OxyContin. She also had an episode of what appeared to be arterial bleeding from this mass as described by her who was taking care of her wound. Patient was admitted and the bleeding had stopped. Treatment Options: 1. The patient has received previous local radiation to the pelvis. I will need to obtain the information on volume treated and doses received. She could continue to receive systemic chemotherapy and withhold any palliative local therapy until she becomes more symptomatic. 2. Patient could be considered for a course of reirradiation once the prior dose and volume is known. Limited treatments could be utilized to decrease the risk of recurrent bleeding and could possibly decrease the pain that she is experiencing. 3. Hospice. Recommendations: My final recommendations will be pending review of his prior radiation and following discussion with Dr. Bee. Plan: 1. Obtain and review radiation therapy records from his previous pelvic radiation. 2. Review of scans with radiology. 3. Discussed case with Dr. Bee. 4. Continue chemotherapy per Dr. Bee Rationale/Explanation of Treatment: Radiation can be used to treat local pain likely caused by the local invasion of the tumor into the surrounding musculature and soft tissue. She also had an episode of what was described as arterial bleeding which was controlled with pressure. Palliative radiation can be helpful in treating both of these potential tumor effects. However patient has had prior radiation to the pelvis as part of a planned preoperative chemo radiation treatment. It is likely that significant portions of the recurrent tumor were in the prior radiation. I will need to obtain these records which have been sent for for verification. Retreatment with palliative doses is possible and may be advantageous. I will discuss this with Dr. Bee. I did discuss the possibility of reirradiation with the patient. She indicated that she was willing to consider this as an option. I indicated to her that once I have reviewed her prior treatment records that I would review the potential risks side effects and benefits of a course of palliative reirradiation at that time. This chart was completed in part utilizing X-IO Speech Voice Recognition software. Grammatical errors, random word insertions, pronoun errors and incomplete sentences are occasional consequence of this system due to software limitations, ambient noise and hardware issues. Any formal questions or concerns about the content, text or information contained within the body of this dictation should be directly addressed to the provider for clarification. Dev Muñiz MD Department of Radiation Oncology [facility]ly [facility] Present on Admission?: Yes (2) Rectal bleed: Same as above. History of Present Illness Reason for Consultation: Palliation of recent rectal bleeding. Requesting Physician: Dr. Winston/Dr. King Bagley Attending Physician: Law Winston History of Present Illness Ms. Kwon is a 58-year-old female who was diagnosed with a rectal cancer in 2015. The patient was seen initially by Dr. Binu Chandra for preoperative radiation and by Dr. Avelar who is a surgeon from [facility]. The patient ultimately did receive chemoradiation receiving 6 weeks of external radiation along with systemic chemotherapy consisting of 5-FU. The patient states that following the completion of her preoperative therapy she was seen for surgical evaluation. According to the patient she was told that she might need a colostomy following an AP resection. The patient indicated that at that time she was unwilling to consider a colostomy and therefore refused to proceed with surgery. June 2016. Patient was seen by a surgeon who confirmed residual active rectal cancer. She apparently was offered surgery at that time but again refused surgery because of concerns over a colostomy. She apparently was lost to follow-up until she was seen by Dr. Bee. 04/28/2018. Patient undergoes CT scan of the abdomen and pelvis with IV contrast. Patient apparently had a fall with complaint of pain and was brought in for further evaluation. This scan showed a large irregular invasive potentially ulcerated mass of the anus and anorectal junction and rectum which is compatible with the patient's known prior history of colorectal carcinoma. The mass invaded the right ischio anal fossa and adjacent musculature with possible invasion of the posterior vagina. There was right pelvic jorge metastasis appreciated. There was no bowel obstruction. There was mild to moderate urinary bladder wall thickening but no evidence of invasion of the bladder. 04/28/2018. CT of the thoracic spine without IV contrast showed no evidence of acute fracture or misalignment. Minimal and suspected acute superior endplate compression fracture is noted involving L1. A minimal and age-indeterminate superior endplate compression deformity of T4 is likely chronic. No evidence of metastatic disease. 04/28/2018. CT scan of the lumbar spine without contrast showed a mild and acute appearing superior endplate compression fracture of L1 with the remainder of the lumbar spine intact. Osteopenia is noted throughout. 04/28/2018. CT of the head without contrast showed no masses hematomas midline shift or acute infarct or metastatic disease. 04/28/2018. CTA of the chest with PE protocol. There was no evidence of pulmonary embolus no mediastinal or hilar adenopathy. 04/29/2018. Patient admitted and seen in referral by Dr. Bee. The patient at the time was having considerable pain in the anal area with several falls decreasing appetite and weight loss. Patient was started on systemic chemotherapy having evidence of progressive local disease but no evidence of metastatic disease at that time. 05/12/2018. PET CT scan performed for staging. There was marked FDG uptake within the irregular ulcerated mass of the anus, anorectal junction and rectum consistent with malignancy. The mass invades the right ischio anal fossa, pelvic floor musculature and possible invasion of the vagina. There is no FDG uptake within a 1.8 x 1.6 cm right pelvic nodule. Indeterminate 6 mm groundglass opacity within the left lower lobe below PET threshold for evaluatio n. 06/03/2018. Patient seen in the emergency department after fall with complaint of back pain and right ankle pain. 06/18/2018. Dr. Elizabeth placed a Mediport. Patient was ultimately started on salvage FOLFOX chemotherapy. 07/28/2018. Patient presented with worsening dyspnea tachycardia and sepsis. She presented the emergency department and a CT of the chest abdomen and pelvis were performed. There was no evidence of a pulmonary embolus. There was extensive inflammation and tumor necrosis identified involving the rectum and anus with an enhancing soft tissue mass that appeared to have significantly decreased from the studies of April 2018. There was focal discontinuity of the posterior wall the rectum likely representing perforation. There is evidence of likely necrotic tumor and possible abscess/fistula formation. There was no evidence of distant metastatic disease of the chest abdomen or pelvis. An enhancing right pelvic nodule was unchanged from previous studies. 07/28/2018. Patient life flighted to [facility]. That evening she underwent a colostomy with reportedly some debulking. It is unclear from the patient whether this was meant to be a gross total excision or likely a palliative resection. 08/06/2018. Patient transferred to rehab. 10/09/2018. CT scan of the abdomen and pelvis revealed significant interval progression of the regional invasive malignancy involving the lower rectum and anus. Cutaneous erosion along the medial gluteal cleft and likely fistulization appreciated with the anus. Significant increase in multiple soft tissue and fluid loculations in the presacral region with possible direct invasion of the vagina. Metastatic retroperitoneal lymphadenopathy is appreciated. A new hepatic lobe lesion measuring 2.5 cm is highly suspicious for metastatic disease. Double barrel colostomy is in the left mid abdomen. CT scan of the chest showed no mediastinal hilar adenopathy. 10/28/2018. Patient reportedly discharged from rehab. 10/29/2018. Patient receives her most recent dose of FOLFOX. 11/03/2018. Patient's was treating her wound and noted what appeared to be arterial bleeding from the rectal mass. He put pressure on it and brought her to the emergency department. She was admitted for further evaluation and treatment recommendations. 11/04/2018. Patient seen by Dr. Thomson who again noted the large rectal mass but without evidence of bleeding at this time. 11/04/2018. Patient seen by radiation oncology for evaluation and potential role of palliative radiation. This chart was completed in part utilizing X-IO Speech Voice Recognition software. Grammatical errors, random word insertions, pronoun errors and incomplete sentences are occasional consequence of this system due to software limitations, ambient noise and hardware issues. Any formal questions or concerns about the content, text or information contained within the body of this dictation should be directly addressed to the provider for clarification. Dev Muñiz MD Department of Radiation Oncology [facility] Allergies Allergy/AdvReac Type Severity Reaction Status Date / Time bee venom protein (honey bee) Allergy Severe Anaphylaxis Unverified 11/03/18 13:33 morphine AdvReac Severe Vomiting Verified 11/03/18 13:33 Penicillins AdvReac Unknown PT STATES Verified 11/03/18 13:33 IT DOESN'T WORK Home Medications Home Medications Medication Instructions Recorded Confirmed Type citalopram 10 mg PO HS 06/03/18 11/03/18 History oxycodone 5 mg PO Q4 PRN 07/28/18 11/03/18 History fentanyl 1 patch TRANSDERMAL Q72H 10/07/18 11/03/18 History sodium hypochlorite [Dakin's 1 irrig TOPICAL HS 10/07/18 11/03/18 History Solution] buspirone 7.5 mg PO BID 11/03/18 11/03/18 History oxycodone 5 mg PO Q8H 11/03/18 11/03/18 History trazodone 50 mg PO HS 11/03/18 11/03/18 History Patient History Medical History Anemia Chronic pain of right ankle Degenerative disc disease HTN (hypertension), benign HX OF AND HAS WHITE COAT SYNDROME Rectal cancer (Acute) Initially dx 2015; had chemo and XRT but elected not to have surgery and was lost to f/u. Presented acutely to ED 04/2018. Anxiety disorder (Acute) Central venous catheter in place (Acute) SOB (shortness of breath) WITH STAIRS Surgical History History of tonsillectomy History of tympanostomy tube placement History of arthroscopy of right knee History of appendectomy History of bunionectomy of right great toe History of section X 2 History of ankle surgery History of colon resection (Acute) Family History Father Myocardial infarction, Onset Age: 45 Mother Diabetes Glaucoma Other Family history non-contributory Social History Preferred Language: Australian Communication Ability: Effective Personal Banking Advisor Required: No Beliefs That Will Affect Care: None marital status: Current Living Situation: Spouse current occupational status: disabled Other Information That Helps Us Care for You: No Feels Safe at Home: Yes Safety Concerns: Feels Safe At This Time Smoking Status: Never smoker Tobacco Type: cigarettes ; Cigarettes Per Day: 1 CIG A DAY ; Second Hand Exposure: No ; Hx Alcohol Use: No Hx Substance Use: No Review of Systems Review of Systems: All systems reviewed & are unremarkable except as noted in HPI & below The patient continues to have pain from her persistent rectal mass. She is on pain medication which help diminish the intensity of the pain. She is able to find a position i.e. lying on her side which is less painful. She has not had recurrent bleeding since being admitted to the hospital. Physical Exam Constitutional: + frail appearing, + in distress and + overweight Eyes: PERRL, conjunctivae normal, anicteric sclerae ENMT: external ear and nose normal, oropharynx normal Neck: trachea midline, no thyromegaly No cervical or supraclavicular adenopathy appreciated. Respiratory: normal respiratory effort, lungs clear to auscultation Cardiovascular: RRR, no murmur, no edema Chest (Breasts): normal inspection/palpation of breasts Gastrointestinal (Abdomen): Percussion/Palpation: abdomen soft Rectal Exam: + rectal mass A colostomy is present in the left upper quadrant. The patient has a large fungating mass which is extending out of the rectum into the perineum. There is no sign of bleeding at this time. The skin surrounding the mass is indurated and thickened. The mass measures over 12 cm. Musculoskeletal: no cyanosis or clubbing, extremities motor strength 5/5 Skin: + rash Neurologic: normal touch/pain/proprioception and CN's II-XI intact bilaterally Psychiatric: Orientation: alert and oriented x 3 Lymphatic: no cervical or axillary lymphadenopathy No inguinal adenopathy appreciated. Results Additional Studies 11/03/18 13:19 ECG [address] abd pelvis oral and IV con CLINICAL HISTORY: 58 years-old Female presenting with RECTAL CA. IMPRESSION: 1. Significant interval progression of the regional invasive malignancy at the lower rectum and anus with cutaneous erosion along the medial gluteal cleft and likely fistulization with the anus. Significant increase in multiple soft tissue and fluid loculations in the presacral region. Direct invasion of the vagina is not excluded. 2. Metastatic retroperitoneal lymphadenopathy. 3. New right hepatic lobe 2.5 cm lesion highly suspicious for metastatic disease. 4. Double barrel colostomy in the left mid abdomen. No bowel obstruction. Time Spent Attending I spent 20 minutes with direct face to face interaction with the patient which included obtaining clinical information, performing a physical exam, recommending a plan of action and answering questions. I spent 20 minutes in reviewing her scans and preparation of this document. ERNESTO
[2018-11-04] MEDS: CHECK FENTANYL PATCH PLACEMENT SCH (15:44)
[2018-11-04] MEDS: CITALOPRAM 20 MG TAB PO SCH (20:13)
[2018-11-04] MEDS: DAKIN'S SOLN 0.25% HALF STRENGTH 473ML BTL IR SCH (20:15)
[2018-11-04] MEDS: TRAZODONE HCL 50 MG TAB PO SCH (20:15)
--- NOTE | 2018-11-04 22:23 | Hospitalist Progress Note ---
Date of Service November 04, 2018 Assessment & Plan (1) Rectal bleed: (2) Rectal cancer: - Admit to med surg - Consult onc - Follows with Dr. Bee as outpatient - Wound care consulted, following as outpatient - Last round of chemo: 5-FU completed 10/29/18- 10/31/18, continue as per oncology -consulted radiation oncology and surgery. Hemoglobin has not significantly dropped today. will monitor for another 24 hours. If hemoglobin stable, will transfuse her iron as this was planned at the cancer center and will discharge her. (3) Compression fracture of L1 vertebra: - Metastatic disease known since [facility] this year - Pain well controlled (4) Hepatic lesion: - On review of CT abd/pelvis there is a 2.5 cm lesion in the right lobe which is concerning for further metastatic disease - Will ask oncology to place recommendations - Follow hepatic profile with am labs - INR 1.1 (5) Anemia: - Hgb stable for now, follow serial H&H with bleed. Likely a chronic bleed with rectal carcinoma. (6) HTN (hypertension), benign: - BP is 139/67 during my exam, noted white coat syndrome. Will continue to monitor (7) Degenerative disc disease: - Noted, stable (8) Chronic pain of right ankle: - noted, stable. Continue pain control as above. (9) Depression: - Continue buspirone and citalopram (10) DVT prophylaxis: - teds, scds, hold on chemical ppx with bleed as above. Dispo: Admit for observation to med surg, likely to remain in the hospital overnight. Subjective 58 yo female reports feeling well. She states she has not had any significant bleeding today. Her states her lesion was "squirting blood" yesterday but this had subsided. Patient reports tomorrow she had an appointment for iron transfusion. Review of Systems Review of Systems: All systems reviewed & are unremarkable except as noted in HPI & below Physical Exam Physical Exam: General: awake, alert, no apparent distress, + obese Head: Normocephalic, atraumatic ENT: PERRL, EOMI, no pharyngeal exudate, mucous membranes moist Chest: Clear to auscultation, on room air, no adventitious breath sounds Cardiac: Regular rate and rhythm, no murmur, no JVD, normal peripheral pulses, good capillary refill Abdominal: NABS x 4 quadrants, soft, nontender to palpation, no rebound, guarding or tenderness /Rectal: masslike structure noted, no active bleeding currently. Extremities: Normal inspection, no peripheral edema or erythema, calfs nontender to palpation Psych: Normal mood and affect Neuro: AAO x 3, no motor deficits, speech is clear Results & Data Vital Signs (Past 12 Hours) Vital Signs Temp Pulse Resp BP Pulse Ox 11/04/18 15:53 36.8 C 63 18 105/64 96 PG Care Time/CCT Total # of Minutes Spent Total Time Spent with Patient: Total time spent is greater than 50% in coordin ation of care (as documented) at patient's floor/unit and/or counseling patient: (1) Compression fracture of L1 vertebra Encounter type: initial encounter Fracture type: closed Qualified Code(s): S32.010A - Wedge compression fracture of first lumbar vertebra, initial encounter for closed fracture (2) Anemia Anemia type: iron deficiency Iron deficiency anemia type: chronic blood loss Qualified Code(s): D50.0 - Iron deficiency anemia secondary to blood loss (chronic)
[2018-11-05] MEDS: CHECK FENTANYL PATCH PLACEMENT SCH ×3 (00:54→15:36)
[2018-11-05] MEDS: OXYCODONE HCL IR 5 MG TAB (IMMEDIATE RELEASE) PO SCH ×2 (03:14→11:19)
[2018-11-05] MEDS: HEPARIN 100 UNIT/ML 5ML FLUSH FLUSH PRN ×3 (06:20→15:12)
[2018-11-05 06:43] LABS: Hematocrit (blood only) 28.7 % (37-47); Hemoglobin 8.6 g/dL (12.0-16.0); Mean Corpuscular Volume 83.4 fL (80-100); Mean Platelet Volume 8.6 fL (7.4-10.4); Platelet Count 324 K/uL (130-400); RDW Coefficient of Variation 16.5 % (11.5-14.5); RDW Standard Deviation 50.3 fL (36.4-46.3); Red Blood Count 3.44 M/uL (4.2-5.4); White Blood Count 6.62 K/uL (4.8-10.8)
[2018-11-05 07:11] LABS: BUN Creatinine Ratio 20.2 (10-20); Calcium 8.7 mg/dl (8.5-10.1); Creatinine Clr Calc Pharmacy 105.8 ml/min; Est GFR (African American) 112.9; Est GFR (Non-African American) 97.4; Potassium 3.7 mmol/L (3.5-5.1)
[2018-11-05 07:12] LABS: Albumin Globulin Ratio 0.4 (0.9-2); Bilirubin,Total 0.4 mg/dl (0.2-1); Globulin 4.9 gm/dl (2.5-4.0); Total Protein 6.9 gm/dl (6.4-8.2)
[2018-11-05] MEDS: BUSPIRONE HCL 7.5 MG TAB PO SCH (08:02)
[2018-11-05] MEDS ORDERED: IRON SUCROSE 300 MG in SODIUM CHLORIDE 0.9% 250 ML IV ONE (10:00)
--- NOTE | 2018-11-14 15:07 | Discharge Summary ---
Date of Service November 05, 2018 Admission HPI Per Admitting Provider This is a 58 yo F with PMHx of rectal cancer followed by Dr. Bee. Her cancer was initially diagnosed in 2016 and unfortunately was lost to follow up and lacked insurance coverage for some time and therefore did not undergo surgical resection. She has been being treated with chemotherapy of 5-FU and radiation since February 2018. Her last chemotherapy was 10/29/18 - 10/31/18. Pts is present at bedside. He typically changes the dressings over the gluteal fold region and that this morning she had an area which was squirting out blood in a small stream so brought her into the hospital. The patient soaked one ABD in the time it took to get to the hospital, but since changing the dressing again it has not bled. Pt is currently following with wound care as outpatient, and are using dakins solution and ABDs over the area. The patient notes the rectal mass is always painful, but that there is not more pain today compared to usual. She was able to ambulate about the house without any difficulty today, without lightheadedness or dizziness. She had been seen by general surgery at [facility] [place] in [place] within the last week. At that point there was no bleeding. They have been monitoring the mass routinely. Of note she has developed multiple small dark erythematous petechia rash over her extremities, and then also along the trunk where the areas are much cleat maker in color since last week which are puritic and nonpainful. Labs appear to be WNL other than slightly elevated Alk phos at 122 . No new imaging to review. Principal Diagnosis rectal cancer Discharge Exam General: awake, alert, no apparent distress, + obese Head: Normocephalic, atraumatic ENT: PERRL, EOMI, no pharyngeal exudate, mucous membranes moist Chest: Clear to auscultation, on room air, no adventitious breath sounds Cardiac: Regular rate and rhythm, no murmur, no JVD, normal peripheral pulses, good capillary refill Abdominal: NABS x 4 quadrants, soft, nontender to palpation, no rebound, guarding or tenderness /Rectal: masslike structure noted, no active bleeding currently. Extremities: Normal inspection, no peripheral edema or erythema, calfs nontender to palpation Psych: Normal mood and affect Neuro: AAO x 3, no motor deficits, speech is clear Discharge Data Allergies Allergy/AdvReac Type Severity Reaction Status Date / Time bee venom protein (honey bee) Allergy Severe Anaphylaxis Unverified 11/03/18 13:33 morphine AdvReac Severe Vomiting Verified 11/03/18 13:33 Penicillins AdvReac Unknown PT STATES Verified 11/03/18 13:33 IT DOESN'T WORK Consultations 11/03/18 19:41 Consult Case Management - Discharge Planning Routine Consult Oncology Routine 11/04/18 11:28 Consult General Surgery Routine Consult Radiation Oncology Routine Hospital Course (1) Rectal bleed: (2) Rectal cancer: - Admit to med surg - Consult onc - Follows with Dr. Bee as outpatient - Wound care consulted, following as outpatient - Last round of chemo: 5-FU completed 10/29/18- 10/31/18, continue as per oncology -consulted radiation oncology and surgery. Hemoglobin has been relatively stable. Patient received her outpatient IV iron here in the hospital. (3) Compression fracture of L1 vertebra: - Metastatic disease known since earlier this year - Pain well controlled (4) Hepatic lesion: - On review of CT abd/pelvis there is a 2.5 cm lesion in the right lobe which is concerning for further metastatic disease will defer to onc and pcp (5) Anemia: - Hgb stable for now, follow serial H&H with bleed. Likely a chronic bleed with rectal carcinoma. (6) HTN (hypertension), benign: - BP is 139/67 during my exam, noted white coat syndrome. Will continue to monitor (7) Degenerative disc disease: - Noted, stable (8) Chronic pain of right ankle: - noted, stable. Continue pain control as above. (9) Depression: - Continue buspirone and citalopram (10) DVT prophylaxis: - teds, scds, hold on chemical ppx with bleed as above. Total Time Total Time Spent Total Time Spent (In Minutes): 32 Total Time Includes: Examination of the Patient, Discharge Planning and Medication Reconciliation Discharge Plan Discharge Items Patient Disposition: Home - Self-Care Reason For Visit: RECTAL CARCINOMA BLEED Discharge Diagnosis: rectal bleed Activity: Resume your previous activity Non-emergency contact: Primary Care Provider Call non-emergency contact if: you have any medication questions Follow-up/Referrals: Hloden Gauthier DO [Primary Care Provider] - 11/13/18 2:30 pm (Please, follow up at Dr. Gauthier's office with her associate, Sabrina FATIMA, on November 13 at 2:30 pm. *If you need to change this appointment, call the office at [phone].) Solitario Bee [Family Provider] - 11/12/18 9:00 am (Please, follow up at Dr. Bee's office with his associate, Jossy FATIMA, on SaturdayNovember 12 at 9:00 am. If you need to change this appointment, call the office at [phone].) Diet: Regular Addtl Attending Provider Instructions: Patient will followup with PCP in 1 week. Patient should followup with Oncology within 10 days. If bleeding reoccurs and does not stop, please return to ER. If bleeding occurs but stops after pressure, please call PCP. If patient becomes dizzy, or feels fatigued from bleeding please go back to ER. Pending Studies at Discharge: No Stand-Alone Forms: My [facility] Medications and DC Order Prescriptions: Continued oxycodone 5 mg tablet 5 mg PO Q4 PRN (Reason: Pain) RF: 0 Dakin's Solution 0.25 % Solution 1 irrig TOPICAL HS RF: 0 fentanyl 37.5 mcg/hour Patch 72 Hour 1 patch TRANSDERMAL Q72H RF: 0 citalopram 10 mg tablet 10 mg PO HS RF: 0 trazodone 50 mg tablet 50 mg PO HS RF: 0 buspirone 7.5 mg tablet 7.5 mg PO BID RF: 0 oxycodone 5 mg tablet 5 mg PO Q8H RF: 0 Discharge Orders: Discharge Order (Routine); Ordered 11/05/18 Ordered By: Law Winston Admission Data Admit Date/Time: 11/03/18 16:50 Attending Provider: Law Winston Admit Provider: Aubree Escalona Primary Care Provider: Holden Gauthier Other Providers: Frandy Elizabeth ; Deshaun Muñiz ; Solitario Bee Other Interventions: Discharge Summary Assessment (RN) Last Done: 11/05/18 10:35 DC Date/Time DO NOT enter until pt leaves facility: 11/05/18 17:45
== END 2018-11-05 17:45 | disposition home or self-care (01) ==
LOC: ED 12:32 → 4W 12:32 → SUATTDRO 16:50 → 4W 18:57
DX: Z91.030 Bee allergy status; C20 Malignant neoplasm of rectum; Z88.1 Allergy status to other antibiotic agents; K62.5 Hemorrhage of anus and rectum; E88.09 Other disorders of plasma-protein metabolism, not elsewhere classified; Z88.0 Allergy status to penicillin; Z80.9 Family history of malignant neoplasm, unspecified; Z79.899 Other long term (current) drug therapy